=== PATIENT | male | born 1970 | race Caucasian/White ===

== ENCOUNTER 2023-04-10 15:47 | Emergency (ER) | payer OTHER, SELFPAY ==
[2023-04-10 15:54] VITALS: BP 121/80
[2023-04-10 16:13] LABS: % Basophils 0.3 % (0-2); % Eosinophils 1.3 % (0-6); % Immature Granulocytes 0.7 % (0-0.5); % Lymphocytes 16.6 % (20.5-51.1); % Monocytes 10.2 % (1.7-9.3); % Neutrophils 70.9 % (42.2-75.2); Absolute Eosinophils 0.2 10^3/uL (0-0.7); Absolute Immature Granulocytes 0.1 10^3/uL (0-0.05); Absolute Lymphocytes 2.2 10^3/uL (1.2-3.4); Absolute Monocytes 1.4 10^3/uL (0.1-0.6); Absolute Neutrophils 9.5 10^3/uL (1.4-6.5); Hematocrit 39.3 % (39.0-52.0); Hemoglobin 13.8 g/dL (13.0-18.0); Mean Corp Hgb Conc. 35.1 g/dL (33.0-37.0); Mean Corpuscular Hgb 31.1 pg (27.0-31.0); Mean Corpuscular Volume 88.5 fL (80.0-94.0); Mean Platelet Volume 10.1 fL (7.4-10.4); Nucleated Red Blood Cells % 0 % (-); Platelet Count 334 10^3/uL (130-400); Red Blood Cell Count 4.44 10^6/uL (4.70-6.10); Red Cell Dist. Width 12.6 % (11.5-14.5); White Blood Cell Count 13.4 10^3/uL (4.8-10.8)
[2023-04-10 16:22] LABS: Lactic Acid 1.1 mmol/L (0.7-2.0)
[2023-04-10 16:23] LABS: ALT (SGPT) 26 U/L (0-50); AST (SGOT) 22 U/L (17-59); Albumin 4.2 g/dl (3.5-5.0); Alkaline Phosphatase 76 U/L (38-126); Blood Urea Nitrogen 8 mg/dl (9-20); Calcium 9.3 mg/dl (8.4-10.2); Carbon Dioxide 21 mmol/L (22-30); Chloride 104 mmol/L (98-107); Glucose 97 mg/dl (70-99); Potassium 4.2 mmol/L (3.5-5.1); Sodium 133 mmol/L (135-145); Total Bilirubin 0.8 mg/dl (0.2-1.3); eGFR > 60.00
--- NOTE | 2023-04-10 17:48 | ED.GENMED ---
History of Present Illness
General
Chief Complaint: Pneumonia Symptoms
Time Seen by Provider: 04/10/23 16:49
Travel History
Have you had any contact with someone who has COVID-19?: No
Do you have any symptoms of coronavirus? Fever > 100 degrees, chills, cough, shortness of breath, sore throat, loss of taste or smell, muscle aches, or headache?: Yes
Symptoms:: cough
History of Present Illness
History of Present Illness:
53-year-old male with history of GERD presents to the emergency department for evaluation of persistent cough and chest congestion. He states he had influenza in January and has continually had worsening symptoms. He saw his neck band maker as an
outpatient in the middle of March and was prescribed azithromycin, completed this without any change to symptoms. Continue to have coughing and shortness of breath and went to urgent care today, outpatient chest x-ray reportedly suggesting
multifocal pneumonia. I was able to review report however not the dedicated images from the urgent care. The patient was then sent to the emergency department for treatment.
Past History
Past History
ED Past Medical History: GERD
ED Past Surgical History: Orthopedic
Social History
Tobacco: Non-smoker
Alcohol: Occasional
Drug: None
Personal:
Living: with family
Review of Systems
Review of Systems
Allergies reviewed?: Yes
All Other Systems: ROS reviewed and negative except as documented in HPI and ROS
Phy Exam
Physical Exam
Physical Exam:
GEN: Well appearing, NAD, WDWN
HEENT: Oral mucosa moist, no scleral icterus
Cardiac: Mild tachycardia, regular
Lung: No respiratory distress, no tachypnea, interstitial crackles best heard at the right middle and lower lobes
MSK: No gross deformity or injuries
Skin: Good color, no pallor or jaundice, no rashes
Neuro: AO x3, moves all extremities freely
Psych: Calm, cooperative
Course
Orders/Labs/Results
Orders:
Orders
04/10/23 15:58
Electrocardiogram (*1) Urgent
Reason for Study: Other
Other Reason for Exam: coughing
EKG- Treatment ONCE
04/10/23 16:02
Complete Blood Count/With Diff Urgent
Comprehensive Metabolic Panel Urgent
Lactic Acid Urgent
Blood Culture Urgent
MAURILIO Source: Blood/Venous
Specimen Description:
04/10/23 16:59
0.9% Sodium Chloride 1000 ml [Nss] 1,000 ml IV BOLUS
CefTRIAXone [Rocephin] 1,000 mg IV NOW STA
Doxycycline [Vibramycin] 100 mg PO NOW STA
04/10/23 17:47
Blood Culture Urgent
MAURILIO Source: Blood/Venous
Specimen Description:
Abnormal Lab Results
04/10/23
16:02
WBC 13.4 H 10^3/uL
(4.8-10.8)
RBC 4.44 L 10^6/uL
(4.70-6.10)
MCH 31.1 H pg
(27.0-31.0)
Abs Immat Gran (auto) 0.1 H 10^3/uL
(0-0.05)
Absolute Neuts (auto) 9.5 H 10^3/uL
(1.4-6.5)
Absolute Monos (auto) 1.4 H 10^3/uL
(0.1-0.6)
Immature Gran % 0.7 H %
(0-0.5)
Lymphocytes % 16.6 L %
(20.5-51.1)
Monocytes % 10.2 H %
(1.7-9.3)
Sodium 133 L mmol/L
(135-145)
Carbon Dioxide 21 L mmol/L
(22-30)
BUN 8 L mg/dl
(9-20)
04/10/23 16:02
04/10/23 16:02
Vital Signs
Initial and Last Documented VS:
Initial Vital Signs
Temp Pulse Resp BP Pulse Ox
98.8 F 118 18 121/80 96
04/10/23 15:54 04/10/23 15:54 04/10/23 15:54 04/10/23 15:54 04/10/23 15:54
Last Documented Vital Signs
Temp Pulse Resp BP Pulse Ox
98.8 F 118 18 121/80 96
04/10/23 15:54 04/10/23 15:54 04/10/23 15:54 04/10/23 15:54 04/10/23 15:54
MDM/Problems Addressed
MDM/Problems Addressed:
Patient is clinically well with minimal leukocytosis and no hypoxia. His clinical exam is congruent with the outpatient chest x-ray findings. I see no indication for admission at this juncture. Will cover the patient with dual coverage
antibiotics particular given his recent influenza suggesting a potential postobstructive pneumonia as well as recent course of azithromycin. Will treat with cefdinir as well as doxycycline both for a 1 week course, initial antibiotic started in the
emergency department
*Critical Care Note
Total Time (30-74mins, 75-104mins- exclusive of procedures): Not Applicable
ED Attending Note
-
Portions of this chart may have been created with voice recognition software.� Occasional wrong word or��sound alike� substitutions may have occurred due to the inherent limitations of voice recognition software.
Discharge Plan
Departure
Patient Disposition: Home (Routine Discharge)
Date of Disposition: 04/10/23
Time of Disposition: 17:57
Patient with high blood pressure during this ER visit?: No
Discharge Problem:
Multifocal pneumonia
Instructions: Pneumonia, Adult (DC)
Prescriptions:
New
cefpodoxime 200 mg tablet
200 mg PO Q12H 6 Days Qty: 12 0RF
doxycycline hyclate 100 mg capsule
100 mg PO BID Qty: 13 0RF
No Action
oseltamivir [Tamiflu] 75 mg capsule
75 mg PO BID 5 Days Qty: 10 0RF
albuterol sulfate 90 mcg/actuation HFA aerosol inhaler
2 puff inhalation QID PRN (Reason: shortness of breath or wheezing) Qty: 6.7 0RF
Activity Restrictions/Additional Instructions:
See your primary care doctor or neck band maker in 7-10 days for follow up
If your symptoms worsen, you develop difficulty breathing, or chest pain, return to the ER immediately
Do not take the doxycycline at the same time as any metal supplements (calcium, iron, etc) or foods with high metal content (red meat, dairy, etc).
Interventions
Interventions:
*ED COVID-19 Vaccine History Last Done: 04/10/23 15:54
[2023-04-10] MEDS: NSS 1000 IV (17:54)
[2023-04-10] MEDS: VIBRAMYCIN 100 MG PO (17:55)
[2023-04-10] MEDS: ROCEPHIN 1000 MG IV (17:55)
[2023-04-10 18:00] VITALS: BP 132/74
== END 2023-04-10 19:22 | disposition home or self-care (01) ==
LOC: EMR 15:47
PROVIDERS: Emergency Medicine; EMERGENCY PHYSICIAN Emergency Medicine; FAMILY PHYSICIAN Internal Medicine
DX: J18.9 Pneumonia, unspecified organism (principal)
CPT/HCPCS: 99284; 96374; 96361; 80053; 83605; 85025; 87040; 93005

== ENCOUNTER 2023-04-15 13:16 | Inpatient (IN) | payer OTHER, SELFPAY ==
[2023-04-15] VITALS (10 sets, daily range): BP systolic 97–115; BP diastolic 68–85; BMI 33.9; BMI 32.3
[2023-04-15 10:20] LABS: % Basophils 0.3 % (0-2); % Eosinophils 1.4 % (0-6); % Immature Granulocytes 0.4 % (0-0.5); % Lymphocytes 14.1 % (20.5-51.1); % Monocytes 11.3 % (1.7-9.3); % Neutrophils 72.5 % (42.2-75.2); Absolute Eosinophils 0.2 10^3/uL (0-0.7); Absolute Immature Granulocytes 0.1 10^3/uL (0-0.05); Absolute Lymphocytes 1.7 10^3/uL (1.2-3.4); Absolute Monocytes 1.3 10^3/uL (0.1-0.6); Absolute Neutrophils 8.5 10^3/uL (1.4-6.5); Hematocrit 38.6 % (39.0-52.0); Hemoglobin 13.1 g/dL (13.0-18.0); Mean Corp Hgb Conc. 33.9 g/dL (33.0-37.0); Mean Corpuscular Hgb 30.5 pg (27.0-31.0); Mean Corpuscular Volume 89.8 fL (80.0-94.0); Nucleated Red Blood Cells % 0 % (-); Platelet Count 335 10^3/uL (130-400); Red Cell Dist. Width 12.7 % (11.5-14.5); White Blood Cell Count 11.8 10^3/uL (4.8-10.8)
--- NOTE | 2023-04-15 10:22 | ED.GENMED ---
History of Present Illness
General
Chief Complaint: Chest Pain
Source: patient and spouse
Exam Limitations: none
Time Seen by Provider: 04/15/23 10:02
Travel History
Have you had any contact with someone who has COVID-19?: No
Do you have any symptoms of coronavirus? Fever > 100 degrees, chills, cough, shortness of breath, sore throat, loss of taste or smell, muscle aches, or headache?: No
History of Present Illness
History of Present Illness:
Patient currently being treated for multifocal pneumonia. Seen here 4 days ago for same. Currently on antibiotics. X-ray was done at urgent care and read there. However primary care was concerned about his EKG. He did have some chest tightness
this morning. Shortness of breath has been stable.
Past History
Past History
ED Past Medical History: GERD
ED Past Surgical History: Orthopedic
Social History
Tobacco: Non-smoker
Alcohol: Occasional
Drug: None
Personal:
Living: with family
Review of Systems
Review of Systems
All Other Systems: Not applicable
Constitutional: Denies fever
Respiratory: Reports cough
ABD/GI: Reports no symptoms
Phy Exam
Physical Exam
Physical Exam:
GENERAL: Alert and oriented in no apparent distress
EYE: Orbits normal.
NECK: Supple
CARDIAC: Tachycardic and regular no murmur
LUNGS: Mild tachypnea at rest. Pulse ox upon getting into bed was about 90%. When resting will go up to 92 to 94%. Bilateral rales. No wheezing or rhonchi
ABDOMEN: Soft, without focal tenderness or distention
NEUROLOGICAL: Alert and oriented , grossly non-focal
SKIN: Warm and dry, no rash or lesion, no discoloration, skin intact.
MUSCULOSKELETAL: No edema,no deformity.Good color
PSYCH: Normal and appropriate interaction.
Scores
Heart Score for Chest Pain Patients
STEMI patient?: No
History: Slightly or Non-Suspicious
ECG: Nonspecific Repolarization
Age: >45 - <65 years
Risk Factors: 1 or 2 Risk Factors
Troponin: </= Normal Limit
Heart Score for Chest Pain Patients: 3
Heart Score Risk: 2.5% MACE over next 6 weeks
Course
Orders/Labs/Results
Orders:
Orders
04/15/23 09:55
Electrocardiogram (*1) Urgent
Reason for Study: Chest Pain
EKG- Treatment ONCE
04/15/23 10:09
Complete Blood Count/With Diff Urgent
Comprehensive Metabolic Panel Urgent
NT-proBNP Urgent
Comment: ADD N
Prothrombin Time Urgent
Troponin I Urgent
04/15/23 10:13
Add On- LAB Urgent
Tests Added?: probnp
CXR Port [CR Chest Portable - 1 View] Urgent
Comment:
Reason For Exam: sob
Reason Study Needs to be Portable: Unable to Transport
04/15/23 10:14
Cardiac Monitoring- Treatment ONCE
IV Insert/Care/Rem.- Treatment PRN
O2 Therapy [RESP] Stat
Titrate/Wean O2 to maintain O2 sat greater than (%): 94
04/15/23 10:56
Furosemide [Lasix] 40 mg IV NOW STA
04/15/23 12:06
Echo 2D MMode Color/Doppler [Echo 2D MMode Color/Doppler] Routine
Reason for Study: SOB
04/15/23 12:57
Admit/Transfer Patient As Directed
Co-Sign Provider:
Level of Care: Inpatient admission
Assign to:: Telemetry
Physician / Group: Main
Diagnosis: Hypoxia, Acute Heart Failure
Reason for Telemetry: Acute Heart Failure
Date to Stop Telemetry: 04/18/23
Time to Stop Telemetry: 11:00
Reason for Hospitalization: Cardiology consult; IV diuretics
Expected length of stay greater than two midnights?: Yes
ELOS- Estimated Length of Stay in days: 3
I certify the patient meets the requirements for IP care: Yes
04/15/23 12:59
Code Status As Directed
Resuscitation Status: Full Code
04/15/23 13:01
COVID-19 Antigen Urgent
Source: Nasal Swab
04/15/23 13:15
CARDIOLOGY CONSULT Routine
Consulting Provider: Roman Menjivar
Was physician already notified: Yes
04/15/23 13:16
Procalcitonin Urgent
PCT Algorithmm Indication: Respiratory
04/15/23 14:49
HF DIETARY CONSULT Routine
HF EDUCATOR CONSULT Routine
Comment:
Activity As Directed
Activity Level: Out of Bed-Early Mobility
Intake/ Output As Directed
Frequency: Per unit guidelines
Patient Education As Directed
Type: CHF folder
Comment: give on admission. Document in Interdisciplinary Education record
Sleep Apnea Assessment by RN As Directed
Comment:
Physician Instructions:
Vital Signs As Directed
Frequency: Other
Additional Instructions:: Q12 or per unit guidelines if more frequent.
Weight As Directed
Frequency: Daily
Type of Scale: Standing Scale
Comment: Daily morning weight. If unable to stand, use balanced bed scale.
Weight As Directed
Frequency: Once
Type of Scale: Standing Scale
Comment: Upon Admission. If unable to stand, use balanced bed scale.
O2 Therapy [RESP] Routine
Titrate/Wean O2 to maintain O2 sat greater than (%): 90
Pulse Ox/cont/shift [RESP] Routine
Quantity: 1
Special Instructions: Daily pulse oximetry at rest. If greater than 92% at rest also obtain pulse oximetry
while ambulating as tolerated.
DX Deep Vein Thrombosis Video Routine
04/15/23 Dinner
Cholesterol Lowering
At Your Request: Full Participation
Cholesterol Lowering: Sodium, 2 Gram
04/15/23 16:00
Troponin I Q6H
Furosemide [Lasix] 40 mg IV BID AT 0800,1600
04/15/23 18:00
Enoxaparin Sodium [Lovenox] 40 mg SC QPM
04/15/23 22:00
Troponin I Q6H
04/16/23 06:00
Basic Metabolic Panel IN AM
Cardiovascular Evaluation IN AM
Complete Blood Count/No Diff IN AM
Hgba1c [Glycohemoglobin (HgbA1c)] IN AM
Magnesium IN AM
TSH Reflex To Free T4 IN AM
04/17/23 06:00
Basic Metabolic Panel IN AM
04/18/23 06:00
Basic Metabolic Panel IN AM
04/18/23 11:00
DC Protocol for Telemetry ONCE
Abnormal Lab Results
04/15/23
10:09
WBC 11.8 H 10^3/uL
(4.8-10.8)
RBC 4.30 L 10^6/uL
(4.70-6.10)
Hct 38.6 L %
(39.0-52.0)
Abs Immat Gran (auto) 0.1 H 10^3/uL
(0-0.05)
Absolute Neuts (auto) 8.5 H 10^3/uL
(1.4-6.5)
Absolute Monos (auto) 1.3 H 10^3/uL
(0.1-0.6)
Lymphocytes % 14.1 L %
(20.5-51.1)
Monocytes % 11.3 H %
(1.7-9.3)
PT 15.0 H Sec
(11.4-14.6)
Sodium 133 L mmol/L
(135-145)
Glucose 118 H mg/dl
(70-99)
Troponin I 0.074 H* ng/ml
04/15/23 10:09
04/15/23 10:09
Vital Signs
Initial and Last Documented VS:
Initial Vital Signs
Temp Pulse Resp BP Pulse Ox
98.7 F 53 18 110/78 95
04/15/23 09:53 04/15/23 09:53 04/15/23 09:53 04/15/23 09:53 04/15/23 09:53
Last Documented Vital Signs
Temp Pulse Resp BP Pulse Ox
98.7 F 96 20 103/79 98
04/15/23 09:53 04/15/23 13:15 04/15/23 12:30 04/15/23 13:01 04/15/23 13:15
MDM/Problems Addressed
Differential Diagnosis Includes:
I am suspicious of possible CHF. This could be a multifocal pneumonia. Workup in progress. Warrants admission.
*Critical Care Note
Total Time (30-74mins, 75-104mins- exclusive of procedures): 45
Data Reviewed
Review of Other/Old Records Reveals: Labs and Records
Update Note
Update Note:
1105... I am much more suspicious of CHF versus a pulmonary etiology. X-ray is suspicious. Discussed with cardiology. Discussed with hospitalist. Cardiology will see shortly. Still administer Lasix.
ED Attending Note
-
Portions of this chart may have been created with voice recognition software.� Occasional wrong word or��sound alike� substitutions may have occurred due to the inherent limitations of voice recognition software.
Discharge Plan
Departure
Patient Disposition: Admit
Date of Disposition: 04/15/23
Time of Disposition: 11:15
Presentation/result/management discussed w/ accepting MD/DO: Cardiology
Discharge Problem:
Heart failure
Interventions
Interventions:
*Risk Screen - Suicide Last Done: 04/15/23 09:53
*General Assessment Last Done: 04/15/23 09:53
*Neglect/Abuse Screening Last Done: 04/15/23 09:53
*ED COVID-19 Vaccine History Last Done: 04/15/23 10:03
*Nursing Disposition Last Done: 04/15/23 13:59
ED- Cardiac Assessment Last Done: 04/15/23 10:04
Discharge Date and Time
Discharge Date/Time: 04/15/23 13:59
[2023-04-15 10:30] LABS: INR 1.17
[2023-04-15 10:36] LABS: ALT (SGPT) 28 U/L (0-50); AST (SGOT) 27 U/L (17-59); Albumin 3.9 g/dl (3.5-5.0); Alkaline Phosphatase 67 U/L (38-126); Blood Urea Nitrogen 9 mg/dl (9-20); Calcium 9.3 mg/dl (8.4-10.2); Carbon Dioxide 25 mmol/L (22-30); Chloride 101 mmol/L (98-107); Estimated Creatinine Clearance 105 ml/min; Glucose 118 mg/dl (70-99); Potassium 4.2 mmol/L (3.5-5.1); Sodium 133 mmol/L (135-145); Total Bilirubin 0.6 mg/dl (0.2-1.3); Total Protein 6.9 g/dl (6.3-8.2); eGFR > 60.00
[2023-04-15 10:49] LABS: Troponin I 0.074 ng/ml
[2023-04-15] MEDS: LASIX 40 MG IV ×2 (11:18→16:29)
[2023-04-15 11:21] LABS: NT-proBNP 1960 pg/ml
--- NOTE | 2023-04-15 11:21 | CON.CAR ---
Addendum entered and electronically signed by Roman Menjivar MD 04/15/23 13:40:
I saw and examined the patient.
The STERILE TECH's note was reviewed and I agree with the note.
Comment: Consultation
Consultation Request
Date/Time Consultation Requested:�04/15/23 1113
Date/Time Consultation Performed:�04/15/23 1140
Requesting Provider:�Dr. Doe
Performing Provider:�Jennifer CAMILO for Dr. Menjivar
Reason for Consultation:�chest discomfort, shortness of breath
Medical History
-
Chief Complaint:�SOB, chest discomfort
History of Present Illness:
53 y/o male with hypertension, obesity on Ozempic, DM (not currently on medicines), suspected FAMILIA (not yet treated), hx dyslipidemia (normal on most recent OP labs), former smoker who is here for evaluation of SOB and chest discomfort when taking
deep breaths and coughing. He endorses symptoms that began in January but continued despite treatment of influenza. He has had recurrent ED visits. He is clearly describing episodes of orthopnea and PND. He has been losing weight with Ozempic.
He did see a skein winder as an outpatient but no testing was done as they were waiting for him to recover from the flu. On physical exam he has a pickwickian it, JVP is elevated at the level of the mandible. He has a regular rate and rhythm.
Lungs are clear to auscultation bilaterally with frequent coughing. Extremities are warm and well-perfused. No edema. Chest x-ray shows pulmonary edema with small areas of focal consolidation in the bases. Cardiomegaly is seen. EKG shows sinus
rhythm with a tachycardic rate and PVCs. Poor R wave progression is noted. Left axis deviation is also noted. This is under change outside of rate from the prior recently. However in 2018 R wave progression was not normal. Labs are significant
for an elevated proBNP. Troponin is elevated in the setting of acute CHF. Echocardiogram will be done immediately. I will give an additional dose of Lasix this evening. Further cardiac evaluation pending echo result, I did discuss with him and
his that cardiac catheterization may be indicated during this hospitalization. However his chest pain is that of a pleuritic nature. Will follow.
Original Note:
Consultation
Consultation Request
Date/Time Consultation Requested: 04/15/23 1113
Date/Time Consultation Performed: 04/15/23 1140
Requesting Provider: Dr. Doe
Performing Provider: Jennifer CAMILO for Dr. Menjivar
Reason for Consultation: chest discomfort, shortness of breath
Medical History
-
Chief Complaint: SOB, chest discomfort
History of Present Illness:
53 y/o male with hypertension, obesity on Ozempic, DM (not currently on medicines), suspected FAMILIA (not yet treated), hx dyslipidemia (normal on most recent OP labs), former smoker who is here for evaluation of SOB and chest discomfort. Briefly, he
had the flu back in January and has been SOB on and off ever since. He also has a cough with green sputum and chills. He is on ABX for PNA. Today, he went to his PCP in follow-up and reported some chest burning that started around 7 AM. It was
across his chest and into his left side. He was sent to the ER for further evaluation. It is better now. It is worse with palpation, cough, and inspiration. Laying makes his SOB worse. He did have an episode of PND recently. He denies any weight
gain or LE edema. Actually, he has recently lost about 20 lbs over the past 2 months after starting Ozempic. He is in no distress at the time of my assessment. He was just given a dose of IV lasix for suspected HF. He recently saw Dr. Reddy
(skein winder) as a new patient for SOB, but was not able to get the recommended testing done yet due to cough, per patient .
Past Medical History
Past Medical History: HTN, Hypercholesterolemia and NIDDM
Social History
Tobacco: Former Smoker
Personal:
Living: With Family
Family History
Family History: Other (mom with heart disease- details unclear)
Allergies / Home Medications
Allergy/AdvReac Type Severity Reaction Status Date / Time
loperamide [From Imodium A-D] Allergy Swelling Verified 04/15/23 09:52
seasonal allergies Allergy nasal Uncoded 04/10/23 15:57
symptoms
Medication Instructions Recorded Confirmed Type
albuterol sulfate 90 mcg/actuation 2 puff inhalation R QIDPRN PRN 04/15/23 04/15/23 History
aerosol inhaler shortness of breath or wheezing
cefpodoxime 200 mg tablet 200 mg PO Q12H Infection 04/15/23 04/15/23 History
dextromethorphan polistirex 30 5 ml PO QIDPRN PRN COUGH 04/15/23 04/15/23 History
mg/5 mL oral susp ext.release 12hr
(Delsym 12 hour)
doxycycline hyclate 100 mg capsule 100 mg PO BID Infection 04/15/23 04/15/23 History
ipratropium 0.5 mg-albuterol 3 mg 3 ml inhalation R Q4HPRN PRN SOB 04/15/23 04/15/23 History
(2.5 mg base)/3 mL nebulization
soln
grvnjqnlckejp-XE-uipnirkpminrx-guaif 15 ml PO BIDPRN PRN COUGH AND MILD 04/15/23 04/15/23 History
5 mg-10 mg-325 mg-200mg/15 mL liq PAIN
(Tylenol Cold and Flu Severe)
semaglutide 0.25 mg or 0.5 mg (2 0.25 mg SC MO 04/15/23 04/15/23 History
mg/3 mL) subcutaneous pen injector
(Ozempic)
Review of Systems
-
History Source: Patient
All other systems: Negative unless noted
Respiratory: Cough and Trouble Breathing
Cardiac: Chest Pain
Physical Exam
Vital Signs
Temp Pulse Resp BP Pulse Ox
98.7 F 104 24 97/63 93
04/15/23 09:53 04/15/23 11:18 04/15/23 10:15 04/15/23 11:18 04/15/23 10:15
Lab Results
04/15/23 10:09
04/15/23 10:09
Troponin I 0.074 ng/ml H* 04/15/23 10:09
Egi-R-Zxtvbdwctyt Pept 1960 pg/ml 04/15/23 10:09
Physical Exam
General: Well Developed, Well Nourished and No Apparent Distress
HEENT: Normocephalic and Anicteric
Respiratory: Crackles (b/l bases) and Other (on O2 by NC)
Cardiac: Regular Rhythm (SR/ST)
Breast: Deferred by me
GI: Soft and Normal Bowel Sounds
Musculoskeletal: No Edema
Skin: Warm and Dry
Neuro: AO x 3
Psych: Calm
Impression / Plan
-
SOB:
-possibly multifactorial with PNA (leukocytosis, productive cough, chills), as well as acute HF (see below)
-PNA management per primary team, CHF as below
-o2 91%, now on O2
Chest discomfort:
-improved, worse with cough, palpation, and inspiration
-check echo
Acute HF (type unknown), new diagnosis:
-BNP 1919
-check echo today
-continue IV lasix, which requires intensive monitoring- monitor response
Abnormal troponin:
-etiology unclear, but was mildly hypoxic on arrival
-trend trop to peak
-check echo
HTN:
-on olmesartan as OP
-BP on low end here- follow
DM2:
-not on medical therapy
Obesity:
-improving with Ozempic
Suspected sleep apnea:
-per primary
Data Reviewed
-
EKG: Tracing Personally Visualized and interpreted (ST with PVC's)
Radiology: Report Reviewed by me (CXR: Mild cardiomegaly. Suggestion of mild pulmonary vascular congestion. Patchy opacities at each lung base, which may be related to pneumonia, subsegmental atelectasis, or alveolar pulmonary edema.)
Medical Tests (Nuc Med, Echo etc): Other (ordered)
Labs: Labs Reviewed by me
--- NOTE | 2023-04-15 13:08 | HPS.HSE ---
Addendum entered and electronically signed by Papito Quach MD 04/15/23 14:14:
I saw and examined the patient.
The RUBBER GOODS ASSEMBLER or PA's note was reviewed and I agree with the note.
Comment: 53-year-old male came to the hospital with ongoing cough and shortness of breath. Elevated proBNP in the ED. Concern for CHF. Patient has been having the symptoms since October where he had dyspnea on exertion. Later on he developed
flu in January. Currently he has been treated for pneumonia. Will continue antibiotics for another 2 days. Check procalcitonin. Check echo. Continue with IV Lasix. Depends on echocardiogram may need cardiac catheterization. Cardiology
consulted. wean o2 as tolerated; currently on 4 L
General:�Comfortable and Conversant
HEENT:�Anicteric, Moist mucous membranes and Oxygen (Nasal Cannula)
Respiratory:�Rales (Bilaterally from bases to about 2[address] up lung adams)
Cardiac:�S1/S2 and Regular Rhythm; No Murmur
GI:�Soft, Non Tender and Non Distended
Musculoskeletal:�No Clubbing, No Cyanosis and No Edema
Skin:�Warm and Dry
Neuro:�Awake, Alert, Oriented and Nonfocal/grossly intact
I spent a total of 78 minutes with the patient or on the floor. More than 50% of this time involved counseling and coordination of care.
Original Note:
Family Physician
-
Family Physician: Nicolás Garcia
Chief Complaint
-
Cough and Shortness of Breath
History of Present Illness
Patient is a 53 y/o male past medical history of hypertension who presents with increased cough and shortness of breath. Patient reports he had Influenza over [place], and was treated with Tamiflu and a Z-Blair. He reports persistent cough despite
treatment. He was seen at Urgent Care four days ago at which time he was started on cefpodoxime and doxycycline for pneumonia. He was seen by PCP in follow-up today and referred to ED for persistent shortness of breath and ECG changes. Patient
denies any prior history of coronary artery disease or heart failure.
Medical History
Past Medical History
Past Medical History: Reports Other
Additional Past Medical History:
Essential Hypertension
GERD
Past Surgical History: Reports Other
Additional Past Surgical History:
Right Knee
Right Wrist
Social History
Tobacco: Former Smoker (Quit about 7 years ago)
Alcohol: Occasional
Personal:
Family History
Family History: Not pertinent
Allergies / Home Medications
Allergies reflects when Allergies were last updated in [facility].
Home Medications with original date entered in [facility]
Allergy/Medication List:
Allergies
Allergy/AdvReac Type Severity Reaction Status Date / Time
loperamide [From Imodium A-D] Allergy Swelling Verified 04/15/23 09:52
seasonal allergies Allergy nasal Uncoded 04/10/23 15:57
symptoms
Home Medications
albuterol sulfate 90 mcg/actuation aerosol inhaler 2 puff inhalation R QIDPRN PRN shortness of breath or wheezing 04/15/23
cefpodoxime 200 mg tablet 200 mg PO Q12H Infection 04/15/23
dextromethorphan polistirex 30 mg/5 mL oral susp ext.release 12hr (Delsym 12 hour) 5 ml PO QIDPRN PRN COUGH 04/15/23
doxycycline hyclate 100 mg capsule 100 mg PO BID Infection 04/15/23
ipratropium 0.5 mg-albuterol 3 mg (2.5 mg base)/3 mL nebulization soln 3 ml inhalation R Q4HPRN PRN SOB 04/15/23
javnkolxfgzce-PY-seqfzpryouxvw-guaif 5 mg-10 mg-325 mg-200mg/15 mL liq (Tylenol Cold and Flu Severe) 15 ml PO BIDPRN PRN COUGH AND MILD PAIN 04/15/23
semaglutide 0.25 mg or 0.5 mg (2 mg/3 mL) subcutaneous pen injector (Ozempic) 0.25 mg SC MO Diabetes 04/15/23
Review of Systems
-
A 12 point ROS was completed and negative except as noted: Yes
Constitutional: Denies Fever or Chills
Respiratory: Reports Cough and Trouble Breathing
Cardiac: Reports Other (Chest soreness); Denies Palpitations
Physical Exam
Vital Signs
Vital Signs
Temp Pulse Resp BP Pulse Ox
98.7 F 101 20 103/79 95
04/15/23 09:53 04/15/23 13:01 04/15/23 12:30 04/15/23 13:01 04/15/23 13:00
Physical Exam
General: Comfortable and Conversant
HEENT: Anicteric, Moist mucous membranes and Oxygen (Nasal Cannula)
Respiratory: Rales (Bilaterally from bases to about 2/[address] up lung adams)
Cardiac: S1/S2 and Regular Rhythm; No Murmur
GI: Soft, Non Tender and Non Distended
Musculoskeletal: No Clubbing, No Cyanosis and No Edema
Skin: Warm and Dry
Neuro: Awake, Alert, Oriented and Nonfocal/grossly intact
Laboratory Results
-
04/15/23 10:09
04/15/23 10:09
Laboratory Results
PT 15.0 Sec (11.4-14.6) H 04/15/23 10:09
INR 1.17 04/15/23 10:09
Total Bilirubin 0.6 mg/dl (0.2-1.3) 04/15/23 10:09
AST 27 U/L (17-59) 04/15/23 10:09
ALT 28 U/L (0-50) 04/15/23 10:09
Alkaline Phosphatase 67 U/L (38-126) 04/15/23 10:09
Troponin I 0.074 ng/ml H* 04/15/23 10:09
Data Reviewed
-
Diagnostic Radiology: Report Reviewed by me
Lab Data: Labs Reviewed by me
Old Records: Reviewed
Impression/Plan
-
Acute Heart Failure, unknown type
-Consult Cardiology
-Check Echo
-Continue Lasix 40mg IV BID
-Monitor Is&OS and Daily Weights
Recent Pneumonia
-Check procalcitonin - Depending on result will determine need for continue antibiotics
DVT proph: Lovenox
Code Status: Full Code
[2023-04-15 13:23] LABS: COVID-19 Antigen Negative (Negative)
--- NOTE | 2023-04-15 14:29 | CARDSERVLU ---
Echocardiogram with Lumason completed after protocol screening completed. Allergies verified.
Patent IV site: _Rt AC __
IV site flushed with 0.9% NaCl pre and post administration.
Diluted bolus method utilized to enhance visualization of ventricular baird.
Total volume given: _3.0___ mL
Patient tolerated all procedures well without complications.
--- NOTE | 2023-04-15 16:00 | PTCARENOTE ---
Received pt from ED s/p ECHO. Pt walked into room w/ standby assist. Slight SOB, 93% on 2LNC. LS w/ fine crackles irma bases. VSS. Full assessment as documented..
--- NOTE | 2023-04-15 16:16 | W.PN.UPDATE ---
Update Note
Progress Note Update
TTE done showing:
�Left ventricle is moderately dilated. Severely reduced left ventricular
�systolic function. LVEF is estimated at 25%.
�Global hypokinesis.
�Moderate mitral regurgitation.
�Mild/moderate aortic regurgitation.
�Mildly dilated aortic root: SOV 4.0 cm.
�
�No prior study available for comparison.
Will need cath, however not certain he will be able to lie flat tomorrow. Will keep npo and eval in am.
[2023-04-15 16:25] LABS: Procalcitonin < 0.05 ng/ml (0.0-0.25)
[2023-04-15] MEDS: ASPIRIN 325 MG PO (16:29)
[2023-04-15] MEDS: VIBRAMYCIN 100 MG PO (17:45)
[2023-04-15] MEDS: LOVENOX 40 MG SC (17:45)
[2023-04-15] MEDS: ROBITUSSIN PO (17:49)
[2023-04-15] MEDS: ROBITUSSIN 200 MG PO ×2 (17:49→21:56)
[2023-04-16] VITALS (12 sets, daily range): BP systolic 91–129; BP diastolic 70–95; BMI 32.1
[2023-04-16] MEDS: LASIX 40 MG IV (07:49)
[2023-04-16] MEDS: LOW STRENGTH ASPIRIN 81 MG PO (07:50)
[2023-04-16] MEDS: VIBRAMYCIN 100 MG PO ×2 (07:50→20:09)
[2023-04-16] MEDS: ROBITUSSIN 200 MG PO ×3 (07:50→22:34)
--- NOTE | 2023-04-16 08:12 | W.PN.CD ---
Today's Communication / Plan
-
-Echocardiogram yesterday revealed a dilated left ventricle with an EF of 25% with global hypokinesis and moderate MR.
-Patient will undergo right and left heart cardiac catheterization today for definitive coronary assessment; keep NPO.
-Will start GDMT with Toprol-XL 25 mg daily; PVCs noted on telemetry, but no VT.
-Will not start ACEi/ARB/ARNi for now due to blood pressure limitations; try to add after catheterization.
-Will start an SGLT2 inhibitor (Jardiance).
-Continue Lasix 40 mg IV BID.
-Troponin has now peaked at 2 and is trending down.
-Will not start heparin at this time as the patient received Lovenox last evening.
-Continue aspirin 81 mg daily.
-Will start high-dose atorvastatin(80 mg daily) now.
Impression / Plan
-
53 y/o male with hypertension, obesity on Ozempic, DM (not currently on medicines), suspected FAMILIA (not yet treated), hx dyslipidemia (normal on most recent OP labs), former smoker who is here for evaluation of SOB and chest discomfort when taking
deep breaths and coughing.� He endorses symptoms that began in January but continued despite treatment of influenza.� He has had recurrent ED visits.� He is clearly describing episodes of orthopnea and PND.� He has been losing weight with Ozempic.�
He did see a chemical pathologist as an outpatient but no testing was done as they were waiting for him to recover from the flu. Patient is currently being treated with antibiotics for suspected pneumonia. Echocardiogram yesterday revealed a dilated left
ventricle with an EF of 25% with global hypokinesis and moderate MR.
Acute HFrEF (EF 25%) with dilated left ventricle and moderate MR (likely functional MR):
-BNP 0.
-Patient will undergo right and left heart cardiac catheterization today for definitive coronary assessment; keep NPO.
-Will start GDMT with Toprol-XL 25 mg daily; PVCs noted on telemetry, but no VT.
-Will not start ACEi/ARB/ARNi for now due to blood pressure limitations; try to add after catheterization.
-Will start an SGLT2 inhibitor (Jardiance).
-Continue Lasix 40 mg IV BID.
Elevated troponin:
-Possibly secondary to NSTEMI vs type II DE vs nonischemic myocardial injury in the setting of CHF and infection.
-Patient to undergo cardiac catheterization today as above.
-Troponin has now peaked at 2 and is trending down.
-Will not start heparin at this time as the patient received Lovenox last evening.
-Continue aspirin 81 mg daily.
-Will start high-dose atorvastatin(80 mg daily) now.
-Lipid panel pending.
PNA:
-PNA management per primary team; on antibiotics.
HTN:
-on olmesartan as OP
-Will continue to monitor with medication adjustments above.
DM2:
-not on medical therapy; was on Ozempic for weight loss.
-Hemoglobin A1c pending.
Obesity:
-improving with Ozempic
Suspected sleep apnea:
-Management as per primary team.
Physical Exam
Vital Signs/Labs
Vital Signs
Temp Pulse Resp BP Pulse Ox
98.5 F 96 18 109/70 93
04/16/23 07:48 04/16/23 07:49 04/16/23 07:48 04/16/23 07:49 04/16/23 07:48
04/15/23 04/16/23 04/17/23
06:59 06:59 06:59
Actual Weight 101.605 kg
PT 15.0 Sec (11.4-14.6) H 04/15/23 10:09
INR 1.17 04/15/23 10:09
04/15/23
10:09
Lkv-D-Rmrkxxwuwiw Pept 1960
LAB Results
04/15/23 04/15/23 04/15/23
10:09 15:51 22:01
Troponin I 0.074 H* 2.090 H* D 2.030 H*
Physical Exam
Constitutional: No acute distress and Comfortable
EENT: Anicteric
Cardiovascular: Rhythm & rate is regular, Pedal edema is absent, Systolic murmur present (03/07) and S1S2 is normal
Respiratory: Respiratory effort normal and Crackles Present (Bibasilar)
GI: Soft
Neuro/Psych: AO x 3
Other: Skin (Warm, dry, intact)
Data Reviewed
-
Date of Service: April 16, 2023
EKG: Tracing Personally Visualized and interpreted (Telemetry: Sinus rhythm, frequent PVCs)
Echo: Report Reviewed by me (Echocardiogram 04/15/2023: EF 25%, dilated LV, global hypokinesis; moderate MR.)
Medical Tests (PFT, Pathology etc): Discussed with Physician (Interventional Cardiology, primary Hospitalist), Discussed with Nurse and Discussed with Patient
Labs: Labs Reviewed by me
[2023-04-16 08:59] LABS: Hematocrit 40.9 % (39.0-52.0); Hemoglobin 14.4 g/dL (13.0-18.0); Mean Corp Hgb Conc. 35.2 g/dL (33.0-37.0); Mean Corpuscular Hgb 30.6 pg (27.0-31.0); Mean Platelet Volume 10.4 fL (7.4-10.4); Platelet Count 346 10^3/uL (130-400); Red Cell Dist. Width 12.3 % (11.5-14.5); White Blood Cell Count 8.3 10^3/uL (4.8-10.8)
[2023-04-16] MEDS: TOPROL XL 25 MG PO (09:11)
[2023-04-16] MEDS: LIPITOR 80 MG PO (09:11)
[2023-04-16] MEDS: ZOFRAN 4 MG IV (09:29)
[2023-04-16 09:39] LABS: Blood Urea Nitrogen 14 mg/dl (9-20); Calcium 9.4 mg/dl (8.4-10.2); Carbon Dioxide 27 mmol/L (22-30); Chloride 100 mmol/L (98-107); Estimated Creatinine Clearance > 125 ml/min; Glucose 118 mg/dl (70-99); HDL Cholesterol 38 mg/dl; LDL Cholesterol, Calculated 86 mg/dl; Potassium 4.2 mmol/L (3.5-5.1); Sodium 133 mmol/L (135-145); Total Cholesterol 146 mg/dl (50-199); Triglyceride 113 mg/dl (10-149); Very Low Density Lipoprotein 22 mg/dl (0-30); eGFR > 60.00
[2023-04-16 09:59] LABS: TSH Reflex To Free T4 0.69 uIU/ml (0.47-4.68)
[2023-04-16] MEDS: NON-FORMULARY ITEM 200 MG PO ×2 (11:16→20:09)
--- NOTE | 2023-04-16 11:45 | PTCARENOTE ---
Report called and pt picked up in bed for medical laboratory technician. w/ pt.
--- NOTE | 2023-04-16 12:05 | CM ---
Patient seen bedside with , Melissa, initial assessment completed. Patient reports he lives with his in a single story home, denies DME, VN, or SNF. Patient confirms PCP Dr. Munoz, pharmacy used [facility] on [address]. Per updated
notes, patient scheduled for cardiac catheterization today. CM will continue to follow for discharge planning needs.
Plan; home with , no needs anticipated.
[2023-04-16 12:13] LABS: Glycohemoglobin (HgbA1c) 6.4 % (4.0-5.6)
[2023-04-16] MEDS: ROBITUSSIN PO (12:24)
--- NOTE | 2023-04-16 13:22 | W.PN.HOSP.TC ---
Today's Communication/Plan
-
Monitor vital signs see plan
Cardiac catheterization today
Wean oxygen as tolerated
IV Lasix
Assessment / Plan
Assessment / Plan
General:�Comfortable and Conversant
HEENT:�Anicteric, Moist mucous membranes and Oxygen (Nasal Cannula)
Respiratory:�Rales (Bilaterally from bases to about 2/[address] lung adams)
Cardiac:�S1/S2 and Regular Rhythm; No Murmur
GI:�Soft, Non Tender and Non Distended
Musculoskeletal:�No Clubbing, No Cyanosis and No Edema
Skin:�Warm and Dry
Neuro:�Awake, Alert, Oriented and Nonfocal/grossly intact
Acute Heart Failure with reduced ejection fraction
Acute hypoxic respiratory insufficiency secondary to above
Echo 04/15 with EF 45% with global hypokinesis and moderate MR.
Cardiology following, plan for cardiac catheterization today
Continue with Lasix
Elevated troponin
Likely secondary to NSTEMI versus type II MD
Troponin peaked at 2
Was not started on heparin overnight as patient received Lovenox yesterday evening
DM
not on medical therapy
A1c 6.4
ISS,accuchecks
camila will need more diabetic education
Hyponatremia
monitor
Obesity secondary to excess calories
Suspected sleep apnea
Recent Pneumonia
procal neg; finish last day abx
recent influenza infection
DVT proph: Lovenox
Code Status: Full Code
Anticipated Discharge: > 48 hours
Subjective/Interval History
-
Date of Service: April 16, 2023
denies pain
Objective Data
-
Labs:
Laboratory Results
04/16/23
08:27
WBC 8.3
Hgb 14.4
Hct 40.9
Plt Count 346
Sodium 133 L
Potassium 4.2
Chloride 100
Carbon Dioxide 27
BUN 14
Creatinine 0.8
Glucose 118 H
Calcium 9.4
Vital Signs:
Vital Signs
Temp Pulse Resp BP Pulse Ox
98.5 F 100 18 108/78 93
04/16/23 07:48 04/16/23 09:11 04/16/23 07:48 04/16/23 09:11 04/16/23 09:19
I&O
04/15/23 04/16/23 04/17/23
06:59 06:59 06:59
Intake Total 1200 / 1200
Output Total 1750 / 1750 675 / 675
Balance -550 / -550 -675 / -675
--- NOTE | 2023-04-16 13:29 | ITS.CL.CATH ---
Tool Procurement Coordinator - Catheterization
Cardiac Catheterization
Procedure Report:
CARDIAC CATHETERIZATION REPORT
Date of Procedure: 04/16/2023
Referring: Osei Pearce M.D.
Indication: New cardiomyopathy, elevated troponin.
PROCEDURE:
1. Right heart catheterization.
2. Left heart catheterization.
3. Coronary angiography.
4. Sat run.
ACCESS:
6 Mongolian right radial artery.
5 Mongolian right antecubital vein.
CATHETERS:
1. 5 Mongolian balloon wedge.
2. 5 Mongolian JL 3.5.
3. 5 Mongolian JR4.
HEMODYNAMIC DATA
Weight (kg): 101.6
AO (s/d/x mmHg): 99/78/86
LV (s/x mmHg): 100/27 (A wave to 42)
PCWP (a/v/x mmHg): 35/33/27
PA (s/d/x mmHg): 42//31
RV (s/x mmHg): 42/9
RA (a/v/x mmHg): 15
SVC SvO2 (%): 46.3
PA (right) SvO2 (%): 55.1
SaO2 (%): 85.4
Hbg (g/dL): 14.4
SVC (repeat) SvO2 (%): 58.4
IVC SvO2 (%): 54.7
RA SvO2 (%): 55.6
RV SvO2 (%): 52.7
PA (left) SvO2 (%): 53.0
Mixed SvO2 (%): 57.5
CO (L/min): 4.44
CI (L/min/m2): 2.03
TPG (mmHg): 4
PVR (Bernabe Units): 0.90
SVR (dynes*seconds*cm^-5): 1387
AVO2 Diff (Volume %): 5.93
AV gradient (x, mmHg): None.
AV area (cm2): Normal.
LEFT VENTRICULOGRAPHY: Not performed.
CORONARY ANGIOGRAPHY
Dominance: Right.
Left Main: Normal size, trifurcating vessel. There is no coronary artery disease.
LAD: Large size vessel giving rise to 2 significant diagonals before wrapping around the apex. There is no coronary artery disease.
Ramus: Vestigial, 1 mm vessel.
Circumflex: Normal size, nondominant vessel that is essentially 1 large marginal. There are minor luminal irregularities.
RCA: Enormous, dominant vessel with a large posterolateral arcade supplying the entire inferolateral wall. There is no coronary artery disease.
INTERVENTIONS
Sat run performed for left to right shunt in the context of initial screening abnormality.
Narrative:
Initial shunt screening was positive with a 9% difference between the superior vena cava sat and the pulmonary artery sat. Accordingly, the patient underwent a sat run including sampling of the contralateral pulmonary artery, the right ventricle,
right atrium, IVC and a repeat SVC sat. On repeat testing, no step up was observed in the SVC sat no longer demonstrated meaningful difference from the mixed venous or pulmonary artery saturations.
Closure Device: Vascular band for the right radial artery, manual pressure for the right antecubital vein.
Radiation dose (mGy): 399.90
DAP (cm2.Gy): 28.8026
Fluoroscopy time (minutes): 4.7
Sedation time (minutes): 5
CONCLUSIONS:
1. Right dominant circulation with no significant coronary artery disease.
2. Severely elevated filling pressures (LVEDP = 27 mmHg, PCWP = 27 mmHg at 101.6 kg) with evidence of significant diastolic dysfunction (A wave to 42 mmHg).
3. Significant myocardial dysfunction (cardiac index 2.03 L/min/m�).
4. No evidence of intramyocardial shunt on sat run.
RECOMMENDATIONS:
1. Expectant management after cardiac catheterization via right radial/antecubital approach.
2. Limited weight bearing on the right wrist for one week.
3. Continue aggressive diuresis given severely elevated filling pressures and low cardiac index.
4. Guideline directed medical therapy when hemodynamics will tolerate.
5. Transfer from fourth floor to IVU.
Copy to: Osei Pearce M.D., Nicolás Garcia D.O.
Brennon Soriano DO, FACC, FACP
--- NOTE | 2023-04-16 14:03 | PTCARENOTE ---
received pt from recovery area. Right radial and right brachial sites CDI. R-band intact. Educated pt on restrictions. Oriented to room and unit. Call mayo within reach.
[2023-04-16] MEDS: LASIX 80 MG IV (14:18)
--- NOTE | 2023-04-16 14:27 | CM ---
Pricing on Jardiance is $68 for a one month supply.
Farxiga is $15. The patient has commercial insurance and qualifies for the copay coupon. I let Geovanna Castro know. I will place a copay card in the red discharge folder, based on medication decision.
--- NOTE | 2023-04-16 15:30 | PTCARENOTE ---
Assumed care of patient from prior RN. AAO x3 sitting up in bed. RT arm radial band intact, pulse palpable. RT brachial site also c,d,i. Pulse palpable. Denies pain. Assessment otherwise with in normal limits
--- NOTE | 2023-04-16 17:16 | PTCARENOTE ---
vital signs down loaded for previous shift.
[2023-04-16 18:04] LABS: Glucose - Point of Care 94 mg/dl (70-99)
[2023-04-16 22:39] LABS: Glucose - Point of Care 108 mg/dl (70-99)
--- NOTE | 2023-04-16 23:37 | PTCARENOTE ---
Pt received at start of shift, HR SR/ST w/ PVCs 90s-100s. R radial and R brachial dressing CDI. Pt educated on plan of care, pt states no further questions. Pt denies any CP, worsening SOB, or lightheadedness/dizziness at this time. Informed to
notify RN if any changes, call mayo within reach.
[2023-04-17] VITALS (10 sets, daily range): BP systolic 88–116; BP diastolic 65–89; BMI 31.9
[2023-04-17 04:00] LABS: Blood Urea Nitrogen 17 mg/dl (9-20); Calcium 9.3 mg/dl (8.4-10.2); Carbon Dioxide 30 mmol/L (22-30); Chloride 94 mmol/L (98-107); Estimated Creatinine Clearance > 125 ml/min; Glucose 105 mg/dl (70-99); Sodium 133 mmol/L (135-145); eGFR > 60.00
[2023-04-17 07:27] LABS: Glucose - Point of Care 106 mg/dl (70-99)
[2023-04-17] MEDS: LOW STRENGTH ASPIRIN 81 MG PO (09:04)
[2023-04-17] MEDS: VIBRAMYCIN 100 MG PO ×2 (09:09→19:54)
[2023-04-17] MEDS: FARXIGA 10 MG PO (09:12)
[2023-04-17] MEDS: LASIX 80 MG IV (09:13)
--- NOTE | 2023-04-17 10:16 | W.PN.CD ---
Today's Communication / Plan
-
-Right and left heart cardiac catheterization yesterday revealed significantly elevated filling pressures, but no CAD.
-Continue Toprol-XL 25 mg daily; PVCs noted on telemetry, but no VT.
-No ACEi/ARB/ARNi for due to blood pressure limitations.
-Continue Farxiga.
-Continue Lasix 80 mg IV BID.
-Will decrease atorvastatin to 20 mg daily.
Impression / Plan
-
53 y/o male with hypertension, obesity on Ozempic, DM (not currently on medicines), suspected FAMILIA (not yet treated), hx dyslipidemia (normal on most recent OP labs), former smoker who is here for evaluation of SOB and chest discomfort when taking
deep breaths and coughing.� He endorses symptoms that began in January but continued despite treatment of influenza.� He has had recurrent ED visits.� He is clearly describing episodes of orthopnea and PND.� He has been losing weight with Ozempic.�
He did see a test grader as an outpatient but no testing was done as they were waiting for him to recover from the flu. Patient is currently being treated with antibiotics for suspected pneumonia. Echocardiogram revealed a dilated left ventricle
with an EF of 25% with global hypokinesis and moderate MR.
Acute HFrEF/NICM (EF 25%) with dilated left ventricle and moderate MR (likely functional MR):
-BNP 1920.
-Right and left heart cardiac catheterization yesterday revealed significantly elevated filling pressures, but no CAD.
-Continue Toprol-XL 25 mg daily; PVCs noted on telemetry, but no VT.
-No ACEi/ARB/ARNi for due to blood pressure limitations.
-Continue Farxiga.
-Continue Lasix 80 mg IV BID.
Elevated troponin:
-Secondary to acute nonischemic myocardial injury in the setting of CHF exacerbation and infection.
-Troponin peaked at 2.
Prediabetes:
-Hemoglobin A1c is 6.4%.
-Will decrease atorvastatin to 20 mg daily.
PNA:
-PNA management per primary team; on antibiotics.
HTN:
-on olmesartan as OP
-Will continue to monitor with medication adjustments above.
DM2:
-not on medical therapy; was on Ozempic for weight loss.
-Hemoglobin A1c pending.
Obesity:
-improving with Ozempic
Suspected sleep apnea:
-Management as per primary team.
Physical Exam
Vital Signs/Labs
Vital Signs
Temp Pulse Resp BP Pulse Ox
97.9 F 97 20 102/68 94
04/17/23 07:20 04/17/23 09:13 04/17/23 07:20 04/17/23 09:13 04/17/23 07:24
04/16/23 04/17/23 04/18/23
06:59 06:59 06:59
Actual Weight 101.605 kg 100.9 kg
04/16/23 08:27
04/17/23 02:42
PT 15.0 Sec (11.4-14.6) H 04/15/23 10:09
INR 1.17 04/15/23 10:09
Magnesium 2.0 mg/dl (1.6-2.3) 04/16/23 08:27
Triglycerides 113 mg/dl (10-149) 04/16/23 08:27
LDL Cholesterol, Calc 86 mg/dl 04/16/23 08:27
VLDL Cholesterol, Calc 22 mg/dl (0-30) 04/16/23 08:27
HDL Cholesterol 38 mg/dl 04/16/23 08:27
04/15/23
10:09
Szx-L-Akjcpeokgxp Pept 1960
LAB Results
04/15/23 04/15/23 04/15/23
10:09 15:51 22:01
Troponin I 0.074 H* 2.090 H* D 2.030 H*
Physical Exam
Constitutional: No acute distress and Comfortable
EENT: Anicteric
Cardiovascular: Rhythm & rate is regular, Pedal edema is absent, Systolic murmur present (Soft 2/6) and S1S2 is normal
Respiratory: Respiratory effort normal and Rhonchi Present (Mild bibasilar)
GI: Soft
Neuro/Psych: AO x 3
Other: Skin (Warm, dry, intact)
Data Reviewed
-
Date of Service: April 17, 2023
EKG: Tracing Personally Visualized and interpreted (Telemetry: Sinus rhythm, PVCs)
Echo: Report Reviewed by me (EF 25%)
Medical Tests (PFT, Pathology etc): Report Reviewed by me (Cardiac catheterization: No CAD, elevated filling pressures.)
Labs: Labs Reviewed by me
--- NOTE | 2023-04-17 11:21 | CM ---
Chart reviewed. Patient is independent of ADLS, lives with his in a 1 STH, 0 DME. Patient currently with no discharge needs. Plan is for the patient to return home when medically stable. CM to follow
[2023-04-17] MEDS: TOPROL XL 25 MG PO (11:46)
[2023-04-17] MEDS: ROBITUSSIN 200 MG PO ×3 (11:46→22:26)
[2023-04-17 12:20] LABS: Glucose - Point of Care 96 mg/dl (70-99)
--- NOTE | 2023-04-17 13:05 | W.PN.HOSP.TC ---
Today's Communication/Plan
-
Monitor vital signs and see plan
Continue with IV Lasix
Wean oxygen as tolerated
Assessment / Plan
Assessment / Plan
General:�Comfortable and Conversant
HEENT:�Anicteric, Moist mucous membranes and Oxygen (Nasal Cannula)
Respiratory:�Clear to auscultation, mild rales
Cardiac:�S1/S2 and Regular Rhythm; No Murmur
GI:�Soft, Non Tender and Non Distended
Musculoskeletal:�No Clubbing, No Cyanosis and No Edema
Skin:�Warm and Dry
Neuro:�Awake, Alert, Oriented and Nonfocal/grossly intact
Acute Heart Failure with reduced ejection fraction
Acute hypoxic respiratory insufficiency secondary to above
Echo 04/15 with EF 45% with global hypokinesis and moderate MR.
Cardiology following, s/p Cath 04/16 with no CAD, however significantly elevated filling pressures. Continue with IV Lasix.
Elevated troponin
Likely secondary to acute nonischemic myocardial injury in the setting of CHF
Troponin peaked at 2
new onset DM
not on medical therapy
A1c 6.4
ISS,accuchecks
Diabetic education
Hyponatremia
monitor
Obesity secondary to excess calories
Suspected sleep apnea
Recent Pneumonia
procal neg; finished last day abx
recent influenza infection
DVT proph: Lovenox
Code Status: Full Code
Anticipated Discharge: 24 - 48 hours
Subjective/Interval History
-
Date of Service: April 17, 2023
denies pain
Objective Data
-
Labs:
Laboratory Results
04/17/23
02:42
Sodium 133 L
Potassium 4.0
Chloride 94 L
Carbon Dioxide 30
BUN 17
Creatinine 0.8
Glucose 105 H
Calcium 9.3
Vital Signs:
Vital Signs
Temp Pulse Resp BP Pulse Ox
98.6 F 97 20 90/66 97
04/17/23 12:22 04/17/23 11:46 04/17/23 12:22 04/17/23 11:46 04/17/23 09:10
I&O
04/16/23 04/17/23 04/18/23
06:59 06:59 06:59
Intake Total 1200 / 1200
Output Total 1750 / 1750 1874
Balance -550 / -550 -1874 / -1874
[2023-04-17] MEDS: ROBITUSSIN PO (13:26)
--- NOTE | 2023-04-17 15:54 | PN.DE ---
Diabetes Education
- -
Diabetes Education
Met with pt and his at bedside for pre-diabetes education. Current A1C of 6.4%.
Discussed life style modification, pt states he was aware of prediabetes Dx and that he was started on Ozempic 6 weeks ago by his PCP for weight loss. Says he has lost 22 pounds since start on Ozempic and is hoping to lose more weight. He reports
that he has also changed his diet to a low CHO diet and is looking into an exercise routine. Discussed in depth the importance of ongoing reduction of CHO intake, being active and encouraged physical activity.
Pt was provide with take home booklet and Information for [facility] Prediabetes out patient education session and stated that he will call the office and register.
[2023-04-17 16:43] LABS: Glucose - Point of Care 89 mg/dl (70-99)
[2023-04-17] MEDS: LIPITOR 20 MG PO (18:33)
[2023-04-17] MEDS: FLUSH (NSS) 1 FLUSH IV (19:54)
--- NOTE | 2023-04-17 21:22 | PTCARENOTE ---
Received patient at change of shift this PM. AAOx3. VSS. He is NSR/ST on the monitor with PVS. HR in the 110s. INT patent. Right antecubital and radial sites appear clean, dry, and intact. No bleeding. No hematoma. He denies chest pain or
discomfort. He does report a bothersome frequent dry cough and we discussed his medications for this. Plan of care discussed. He is receptive to teaching and motivated. We discussed his medications and he has no further questions about these at this
time. He denies pain and appears comfortable in bed. Will continue to monitor.
[2023-04-17 22:01] LABS: Glucose - Point of Care 105 mg/dl (70-99)
[2023-04-18] VITALS (7 sets, daily range): BP systolic 110–134; BP diastolic 72–93; BMI 31.9
[2023-04-18] MEDS: DUONEB 3 ML INH ×2 (05:05→21:57)
[2023-04-18 05:53] LABS: Blood Urea Nitrogen 20 mg/dl (9-20); Calcium 9.9 mg/dl (8.4-10.2); Carbon Dioxide 28 mmol/L (22-30); Chloride 91 mmol/L (98-107); Estimated Creatinine Clearance 113 ml/min; Glucose 118 mg/dl (70-99); Potassium 3.7 mmol/L (3.5-5.1); Sodium 132 mmol/L (135-145); eGFR > 60.00
[2023-04-18] MEDS: ROBITUSSIN 200 MG PO ×4 (06:28→22:22)
[2023-04-18 07:18] LABS: Glucose - Point of Care 118 mg/dl (70-99)
--- NOTE | 2023-04-18 08:27 | W.PN.CD ---
Today's Communication / Plan
-
increase lasix to bid
po metolazone 5mg x1 today
tesslon pearls
Impression / Plan
-
53 y/o male with hypertension, obesity on Ozempic, DM (not currently on medicines), suspected FAMILIA (not yet treated), hx dyslipidemia (normal on most recent OP labs), former smoker who is here for evaluation of SOB and chest discomfort when taking
deep breaths and coughing.� He endorses symptoms that began in January but continued despite treatment of influenza.� He has had recurrent ED visits.� He is clearly describing episodes of orthopnea and PND.� He has been losing weight with Ozempic.�
He did see a stump shooter as an outpatient but no testing was done as they were waiting for him to recover from the flu. Patient is currently being treated with antibiotics for suspected pneumonia. Echocardiogram revealed a dilated left ventricle
with an EF of 25% with global hypokinesis and moderate MR.
Acute HFrEF/NICM (EF 25%) with dilated left ventricle and moderate MR (likely functional MR):
-PCWP 27 at 101.6 KG
-no great response to IV Lasix, will make BID--will add metolazone x 1 this am
-Continue Toprol-XL 25 mg daily; PVCs noted on telemetry, but no VT.
-No ACEi/ARB/ARNi for due to blood pressure limitations.
-Continue Farxiga.
-cough persists likely fluid but will also add some tesslon pearls
Elevated troponin:
-Secondary to acute nonischemic myocardial injury in the setting of CHF exacerbation and infection.
-Troponin peaked at 2.
Prediabetes:
-Hemoglobin A1c is 6.4%.
-Continue atorvastatin to 20 mg daily.
PNA:
-PNA management per primary team; on antibiotics.
HTN:
-on olmesartan as OP
-Will continue to monitor with medication adjustments above.
DM2:
-not on medical therapy; was on Ozempic for weight loss.
-Hemoglobin A1c pending.
Obesity:
-improving with Ozempic
Suspected sleep apnea:
-Management as per primary team.
Subjective
awful cough especially while lying flat, no cp or pressure sob improving
04/15/23 [facility]: HEMODYNAMIC DATA
Weight (kg): 101.6
AO (s/d/x mmHg):� 99/78/86
LV (s/x mmHg):� 100/27 (A wave to 42)
PCWP (a/v/x mmHg):� 35
PA (s/d/x mmHg):�
RV (s/x mmHg):�
RA (a/v/x mmHg):�
SVC SvO2 (%): 46.3
PA (right) SvO2 (%): 55.1
SaO2 (%): 85.4
Hbg (g/dL): 14.4
CO (L/min):� 4.44
CI (L/min/m2):� 2.03
TPG (mmHg):� 4
PVR (Bernabe Units):� 0.90
SVR (dynes*seconds*cm^-5):� 1387
AVO2 Diff (Volume %):� 5.93
Physical Exam
Vital Signs/Labs
Vital Signs
Temp Pulse Resp BP Pulse Ox
97.7 F 103 16 122/76 93
04/18/23 07:21 04/18/23 07:45 04/18/23 07:21 04/18/23 07:18 04/18/23 07:21
04/17/23 04/18/23 04/19/23
06:59 06:59 06:59
Actual Weight 100.9 kg 101 kg
04/16/23 08:27
04/18/23 05:00
PT 15.0 Sec (11.4-14.6) H 04/15/23 10:09
INR 1.17 04/15/23 10:09
Magnesium 2.0 mg/dl (1.6-2.3) 04/16/23 08:27
Triglycerides 113 mg/dl (10-149) 04/16/23 08:27
LDL Cholesterol, Calc 86 mg/dl 04/16/23 08:27
VLDL Cholesterol, Calc 22 mg/dl (0-30) 04/16/23 08:27
HDL Cholesterol 38 mg/dl 04/16/23 08:27
04/15/23
10:09
Lon-R-Ecrzpkanhnv Pept 1960
LAB Results
04/15/23 04/15/23 04/15/23
10:09 15:51 22:01
Troponin I 0.074 H* 2.090 H* D 2.030 H*
Physical Exam
Constitutional: No acute distress
Cardiovascular: Rhythm & rate is regular, Pedal edema is absent, Systolic murmur absent, Diastolic murmur absent and JVD present
Respiratory: Respiratory effort normal, Lungs clear to auscul., Wheeze Absent, Crackles Absent and Rhonchi Absent
Neuro/Psych: AO x 3
Data Reviewed
-
Date of Service: April 18, 2023
X-Ray/CT/US/MRI/NUC/PET: Discussed with Physician (increasing diuresis attemps) and Discussed with Nurse (give metolazone iv lasix change to bid)
[2023-04-18] MEDS: ZAROXOLYN 5 MG PO (08:46)
[2023-04-18] MEDS: TOPROL XL 25 MG PO (08:47)
[2023-04-18] MEDS: FARXIGA 10 MG PO (08:47)
[2023-04-18] MEDS: LOW STRENGTH ASPIRIN 81 MG PO (08:47)
[2023-04-18] MEDS: VIBRAMYCIN 100 MG PO (08:48)
[2023-04-18] MEDS: LASIX 80 MG IV ×2 (08:49→16:32)
[2023-04-18] MEDS: FLUSH (NSS) 2 FLUSH IV (08:49)
--- NOTE | 2023-04-18 11:06 | PTCARENOTE ---
Received patient this morning resting in bed. Chief complaint is his persistent NPC which is interfering with his sleep. Cardiology in to see the patient and IV lasix increased to BID. Reinforced limiting PO fluids and the need for accurate I&O.
[2023-04-18] MEDS: TESSALON PERLES 100 MG PO ×2 (11:18→19:41)
--- NOTE | 2023-04-18 12:13 | W.PN.HOSP.TC ---
Today's Communication/Plan
-
Monitor vital signs and see plan
Increase Lasix to twice daily
Agree with metolazone
Given potassium given diuresis
Assessment / Plan
Assessment / Plan
General:�Comfortable and Conversant
HEENT:�Anicteric, Moist mucous membranes
Respiratory:�Clear to auscultation, mild rales
Cardiac:�S1/S2 and Regular Rhythm; No Murmur
GI:�Soft, Non Tender and Non Distended
Musculoskeletal:�No Clubbing, No Cyanosis and No Edema
Skin:�Warm and Dry
Neuro:�Awake, Alert, Oriented and Nonfocal/grossly intact
Acute Heart Failure with reduced ejection fraction
Acute hypoxic respiratory insufficiency secondary to above, now weaned off oxygen
Echo 04/15 with EF 45% with global hypokinesis and moderate MR.
Cardiology following, s/p Cath 04/16 with no CAD, however significantly elevated filling pressures. Continue with IV Lasix, increased to twice daily. Metolazone 04/18
cw toprol
Elevated troponin
Likely secondary to acute nonischemic myocardial injury in the setting of CHF
Troponin peaked at 2
new onset DM
not on medical therapy
A1c 6.4
ISS,accuchecks
Diabetic education
Hyponatremia
monitor
Obesity secondary to excess calories
Suspected sleep apnea
Recent Pneumonia
procal neg; finished last day abx
recent influenza infection
DVT proph: Lovenox
Code Status: Full Code
Anticipated Discharge: > 48 hours
Subjective/Interval History
-
Date of Service: April 18, 2023
Denies pain
Objective Data
-
Labs:
Laboratory Results
04/18/23
05:00
Sodium 132 L
Potassium 3.7
Chloride 91 L
Carbon Dioxide 28
BUN 20
Creatinine 0.9
Glucose 118 H
Calcium 9.9
Vital Signs:
Vital Signs
Temp Pulse Resp BP Pulse Ox
97.8 F 94 16 112/93 97
04/18/23 11:12 04/18/23 11:30 04/18/23 11:12 04/18/23 11:12 04/18/23 11:12
I&O
04/17/23 04/18/23 04/19/23
06:59 06:59 06:59
Intake Total 840 / 840 480 / 480
Output Total 1875 / 1875 850 / 850 900 / 900
Balance -1875 / -1875 -10 / -10 -420 / -420
[2023-04-18 12:15] LABS: Glucose - Point of Care 97 mg/dl (70-99)
[2023-04-18] MEDS: KCL 40 MEQ PO (12:50)
[2023-04-18] MEDS: FLUSH (NSS) 1 FLUSH IV ×2 (16:33→19:41)
[2023-04-18 16:58] LABS: Glucose - Point of Care 109 mg/dl (70-99)
[2023-04-18] MEDS: LIPITOR 20 MG PO (17:48)
--- NOTE | 2023-04-18 20:36 | PTCARENOTE ---
Received patient at change of shift this PM. AAOx3. VSS. He is ST/NSR on the monitor with PVCs. HR in the 90s-110s. INT patent. Right antecubital and radial sites appear MEAT GRINDER and clean, dry, and intact. He denies chest pain or discomfort. Plan of
care discussed. He is receptive to teaching and motivated. We discussed his medications and he has no further questions about these at this time. He appears comfortable in bed. Will continue to monitor.
[2023-04-18 21:48] LABS: Glucose - Point of Care 126 mg/dl (70-99)
[2023-04-19 05:43] VITALS: BP 112/89
[2023-04-19 05:47] VITALS: BMI 31.1
[2023-04-19] MEDS: ROBITUSSIN 200 MG PO ×4 (06:58→21:51)
[2023-04-19 07:22] VITALS: BP 134/81
[2023-04-19 07:27] LABS: Glucose - Point of Care 129 mg/dl (70-99)
[2023-04-19] MEDS: TOPROL XL 25 MG PO (08:55)
[2023-04-19] MEDS: LOW STRENGTH ASPIRIN 81 MG PO (08:55)
[2023-04-19] MEDS: FARXIGA 10 MG PO (08:55)
[2023-04-19] MEDS: TESSALON PERLES 100 MG PO ×2 (08:56→23:02)
[2023-04-19 09:30] LABS: Blood Urea Nitrogen 28 mg/dl (9-20); Calcium 10.2 mg/dl (8.4-10.2); Carbon Dioxide 32 mmol/L (22-30); Chloride 90 mmol/L (98-107); Estimated Creatinine Clearance 91 ml/min; Glucose 181 mg/dl (70-99); Potassium 3.2 mmol/L (3.5-5.1); Sodium 132 mmol/L (135-145); eGFR > 60.00
[2023-04-19] MEDS: LASIX 80 MG IV ×2 (10:00→16:56)
[2023-04-19] MEDS: FLUSH (NSS) 2 FLUSH IV (10:01)
--- NOTE | 2023-04-19 10:46 | PTCARENOTE ---
Received patient this morning sitting oob in the chair. Slept well last night, states he didn't cough all night until after breakfast this morning. BMP ordered and drawn, K+ 3.2, Dr. Quach in to see the patient and will replete.
[2023-04-19 11:34] VITALS: BP 111/80
[2023-04-19 11:44] LABS: Glucose - Point of Care 111 mg/dl (70-99)
--- NOTE | 2023-04-19 13:16 | W.PN.HOSP.TC ---
Today's Communication/Plan
-
Monitor vital signs see plan
Continue with IV Lasix, diuresing well
Replete potassium
Assessment / Plan
Assessment / Plan
General:�Comfortable and Conversant
HEENT:�Anicteric, Moist mucous membranes
Respiratory:�Clear to auscultation, mild rales
Cardiac:�S1/S2 and Regular Rhythm; No Murmur
GI:�Soft, Non Tender and Non Distended
Musculoskeletal:�No Clubbing, No Cyanosis and No Edema
Skin:�Warm and Dry
Neuro:�Awake, Alert, Oriented and Nonfocal/grossly intact
Acute Heart Failure with reduced ejection fraction
Acute hypoxic respiratory insufficiency secondary to above, now weaned off oxygen
Echo 04/15 with EF 45% with global hypokinesis and moderate MR.
Cardiology following, s/p Cath 04/16 with no CAD, however significantly elevated filling pressures. Continue with IV Lasix, increased to twice daily. Metolazone 04/18 with good response
cw toprol
Elevated troponin
Likely secondary to acute nonischemic myocardial injury in the setting of CHF
Troponin peaked at 2
Hypokalemia
replete
new onset DM
not on medical therapy
A1c 6.4
ISS,accuchecks
Diabetic education
Hyponatremia
monitor
Obesity secondary to excess calories
Suspected sleep apnea
Recent Pneumonia
procal neg; finished last day abx
recent influenza infection
DVT proph: Lovenox
Code Status: Full Code
Anticipated Discharge: 24 - 48 hours
Subjective/Interval History
-
Date of Service: April 19, 2023
denies pain
Objective Data
-
Labs:
Laboratory Results
04/19/23
09:02
Sodium 132 L
Potassium 3.2 L
Chloride 90 L
Carbon Dioxide 32 H
BUN 28 H
Creatinine 1.1
Glucose 181 H
Calcium 10.2
Vital Signs:
Vital Signs
Temp Pulse Resp BP Pulse Ox
97.7 F 110 20 111/80 95
04/19/23 11:30 04/19/23 12:00 04/19/23 11:30 04/19/23 11:34 04/19/23 11:34
I&O
04/18/23 04/19/23 04/20/23
06:59 06:59 06:59
Intake Total 840 / 840 1560 / 1560 480 / 480
Output Total 850 / 850 4450 / 4450 450 / 450
Balance -10 / -10 -2890 / -2890
[2023-04-19] MEDS: KCL 40 MEQ PO ×2 (13:42→16:56)
--- NOTE | 2023-04-19 16:34 | W.PN.CD ---
Today's Communication / Plan
-
continue diureisis
add gdmt as bp allows
Impression / Plan
-
53 y/o male with hypertension, obesity on Ozempic, DM (not currently on medicines), suspected FAMILIA (not yet treated), hx dyslipidemia (normal on most recent OP labs), former smoker who is here for evaluation of SOB and chest discomfort when taking
deep breaths and coughing.� He endorses symptoms that began in January but continued despite treatment of influenza.� He has had recurrent ED visits.� He is clearly describing episodes of orthopnea and PND.� He has been losing weight with Ozempic.�
He did see a home health care case manager as an outpatient but no testing was done as they were waiting for him to recover from the flu. Patient is currently being treated with antibiotics for suspected pneumonia. Echocardiogram revealed a dilated left ventricle
with an EF of 25% with global hypokinesis and moderate MR.
Acute HFrEF/NICM (EF 25%) with dilated left ventricle and moderate MR (likely functional MR):
-PCWP 27 at 101.6 KG
-finally a good response to diuresis wt down to 98.3 from 101 (04/18) and 102.2 on admission
-Continue Toprol-XL 25 mg daily; PVCs noted on telemetry, but no VT.
-No ACEi/ARB/ARNi/MRA for due to blood pressure limitations----add on discharge if bp allows
-Continue Farxiga.
-cough persists likely fluid but improved with impressive diuresis over night.
Elevated troponin:
-Secondary to acute nonischemic myocardial injury in the setting of CHF exacerbation and infection.
-Troponin peaked at 2.
Prediabetes:
-Hemoglobin A1c is 6.4%.
-Continue atorvastatin to 20 mg daily.
PNA:
-PNA management per primary team; on antibiotics.
HTN:
-on olmesartan as OP
-Will continue to monitor with medication adjustments above.
DM2:
-not on medical therapy; was on Ozempic for weight loss.
-Hemoglobin A1c pending.
Obesity:
-improving with Ozempic
Suspected sleep apnea:
-Management as per primary team.
Subjective
cough is improving with diuresis
04/15/23 [facility]: HEMODYNAMIC DATA
Weight (kg): 101.6
AO (s/d/x mmHg):� 99/78/86
LV (s/x mmHg):� 100/27 (A wave to 42)
PCWP (a/v/x mmHg):�
PA (s/d/x mmHg):�
RV (s/x mmHg):�
RA (a/v/x mmHg):�
SVC SvO2 (%): 46.3
PA (right) SvO2 (%): 55.1
SaO2 (%): 85.4
Hbg (g/dL): 14.4
CO (L/min):� 4.44
CI (L/min/m2):� 2.03
TPG (mmHg):� 4
PVR (Bernabe Units):� 0.90
SVR (dynes*seconds*cm^-5):� 1387
AVO2 Diff (Volume %):� 5.93
Physical Exam
Vital Signs/Labs
Vital Signs
Temp Pulse Resp BP Pulse Ox
97.7 F 110 20 111/80 95
04/19/23 11:30 04/19/23 12:00 04/19/23 11:30 04/19/23 11:34 04/19/23 11:34
04/18/23 04/19/23 04/20/23
06:59 06:59 06:59
Actual Weight 101 kg 98.3 kg
04/16/23 08:27
04/19/23 09:02
PT 15.0 Sec (11.4-14.6) H 04/15/23 10:09
INR 1.17 04/15/23 10:09
Magnesium 2.0 mg/dl (1.6-2.3) 04/16/23 08:27
Triglycerides 113 mg/dl (10-149) 04/16/23 08:27
LDL Cholesterol, Calc 86 mg/dl 04/16/23 08:27
VLDL Cholesterol, Calc 22 mg/dl (0-30) 04/16/23 08:27
HDL Cholesterol 38 mg/dl 04/16/23 08:27
04/15/23
10:09
Ltj-B-Tqloxusnckb Pept 1960
Physical Exam
Constitutional: No acute distress
Cardiovascular: Rhythm & rate is regular, Pedal edema is absent, Systolic murmur absent and Diastolic murmur absent
Respiratory: Respiratory effort normal, Lungs clear to auscul., Wheeze Absent, Crackles Absent and Rhonchi Absent
Neuro/Psych: AO x 3
Data Reviewed
-
Date of Service: April 19, 2023
EKG: Other (tele sinus with pvcs)
[2023-04-19 16:52] VITALS: BP 110/91
[2023-04-19] MEDS: LIPITOR 20 MG PO (16:58)
[2023-04-19 18:17] LABS: Glucose - Point of Care 124 mg/dl (70-99)
[2023-04-19 19:11] VITALS: BP 115/81
[2023-04-19 21:49] LABS: Glucose - Point of Care 130 mg/dl (70-99)
[2023-04-19 23:00] VITALS: BP 131/86
--- NOTE | 2023-04-20 01:13 | PTCARENOTE ---
Continues with occasional non-productive cough. Voiding clear yellow urine. No complaints at present.
[2023-04-20 04:24] VITALS: BP 99/78
[2023-04-20 04:35] VITALS: BMI 31.1
[2023-04-20 06:16] LABS: Blood Urea Nitrogen 38 mg/dl (9-20); Calcium 10.2 mg/dl (8.4-10.2); Carbon Dioxide 29 mmol/L (22-30); Chloride 87 mmol/L (98-107); Estimated Creatinine Clearance 91 ml/min; Glucose 129 mg/dl (70-99); Potassium 3.2 mmol/L (3.5-5.1); Sodium 133 mmol/L (135-145); eGFR > 60.00
[2023-04-20 06:58] VITALS: BP 111/70
[2023-04-20 07:01] LABS: Glucose - Point of Care 133 mg/dl (70-99)
--- NOTE | 2023-04-20 07:36 | W.PN.HOSP.TC ---
Today's Communication/Plan
-
Continue IV diuresis
Continue attempted repletion of potassium oral potassium may be making him nauseous will give IV today
Addition of Aldactone ? defer to cardiology
Check magnesium level
Assessment / Plan
Assessment / Plan
General:�Comfortable and Conversant/with constant dry cough
HEENT:�Anicteric, Moist mucous membranes
Respiratory:�Clear to auscultation, mild rales
Cardiac:�S1/S2 and Regular Rhythm; No Murmur
GI:�Soft, Non Tender and Non Distended
Musculoskeletal:�No Clubbing, No Cyanosis and No Edema
Skin:�Warm and Dry
Neuro:�Awake, Alert, Oriented and Nonfocal/grossly intact
Acute Heart Failure with reduced ejection fraction of 25%
Acute hypoxic respiratory insufficiency secondary to above, now weaned off oxygen
Echo 04/15 with EF 25% with global hypokinesis and moderate MR.
Cardiology following, s/p Cath 04/16 with no CAD, however significantly elevated filling pressures. Continue with IV Lasix, increased to twice daily. Metolazone 04/18 with good response
Replete potassium
cw toprol
Elevated troponin
Likely secondary to acute nonischemic myocardial injury in the setting of CHF
Troponin peaked at 2
Hypokalemia
replete
Persisting nausea since arrival
-Ischemic?
-From furosemide?
-Potassium repletion causing nausea?
new onset DM
not on medical therapy
A1c 6.4
ISS,accuchecks
Diabetic education
Hyponatremia
monitor
Obesity secondary to excess calories
Suspected sleep apnea
Recent Pneumonia
procal neg; finished last day abx
recent influenza infection
DVT proph: Lovenox
Code Status: Full Code
Anticipated Discharge: 24 - 48 hours
Subjective/Interval History
-
Date of Service: April 20, 2023
2 main complaints are continued coughing is dry nonproductive and no states he did hear nausea without emesis he received several dosages of potassium yesterday for repletion his weight is unchanged from yesterday after losing about 3 kg the day
before. He denies any chest pain
Objective Data
-
Labs:
Laboratory Results
04/20/23
04:33
Sodium 133 L
Potassium 3.2 L
Chloride 87 L
Carbon Dioxide 29
BUN 38 H
Creatinine 1.1
Glucose 129 H
Calcium 10.2
Vital Signs:
Vital Signs
Temp Pulse Resp BP Pulse Ox
97.5 F 96 18 111/70 96
04/20/23 06:54 04/20/23 07:00 04/20/23 06:54 04/20/23 06:58 04/20/23 06:54
I&O
04/19/23 04/20/23 04/21/23
06:59 06:59 06:59
Intake Total 1560 / 1560 960 / 960
Output Total 4450 / 4450 1999 / 1999
Balance -2890 / -2890 -1040 / -1040
Review of Systems
-
History Source: Patient
Constitutional: Reports Fatigue
Respiratory: Reports Cough and Trouble Breathing (Feels like constantly cannot catch his breath)
Cardiac: Reports PND and Orthopnea
Abdomen/GI: Reports Nausea
Physical Exam
-
General: Well Developed
HEENT: Normocephalic
Respiratory: Clear to Auscultation
Cardiac: Irregular Rhythm (Sinus rhythm with frequent PVCs)
GI: Soft and Nontender
Skin: Warm, Dry and IV Access / Catheter Site
Neuro: Awake, Alert, Oriented, AO x 3 and No Motor Deficits
Psych: Calm
Data Reviewed
-
Total Time Spent with Patient (in minutes): 56
Medical Tests (Nuc Med, Echo etc): Report Reviewed by me (Reviewed results of right and left heart cath)
Labs: Labs Reviewed by me (Continued hypokalemia 3.2 in spite of repletion yesterday)
--- NOTE | 2023-04-20 08:34 | W.PN.CD ---
Today's Communication / Plan
-
replace potassium
check magnesium
cause of nausea unlear . Will hold Farxiga
continue to tx cough
Impression / Plan
-
53 y/o male with hypertension, obesity on Ozempic, DM (not currently on medicines), suspected FAMILIA (not yet treated), hx dyslipidemia (normal on most recent OP labs), former smoker who is here for evaluation of SOB and chest discomfort when taking
deep breaths and coughing.� He endorses symptoms that began in January but continued despite treatment of influenza.� He has had recurrent ED visits.� He is clearly describing episodes of orthopnea and PND.� He has been losing weight with Ozempic.�
He did see a mounted police as an outpatient but no testing was done as they were waiting for him to recover from the flu. Patient is currently being treated with antibiotics for suspected pneumonia. Echocardiogram revealed a dilated left ventricle
with an EF of 25% with global hypokinesis and moderate MR.
Acute HFrEF/NICM (EF 25%) with dilated left ventricle and moderate MR (likely functional MR):
-PCWP 27 at 101.6 KG - 04/20/23 wt 98.2
-Continue Toprol-XL 25 mg daily; PVCs noted on telemetry, 4 beat NSVT with K 3.2
-No ACEi/ARB/ARNi/MRA for due to blood pressure limitations----add on discharge if bp allows
-C/o nasea today . etiology unclear - hold Farxiga.
-cough persists
Elevated troponin:
-Secondary to acute nonischemic myocardial injury in the setting of CHF exacerbation and infection.
-Troponin peaked at 2.
Prediabetes:
-Hemoglobin A1c is 6.4%.
-Continue atorvastatin to 20 mg daily.
PNA:
-PNA management per primary team; on antibiotics.
HTN:
-on olmesartan as OP
-Will continue to monitor with medication adjustments above.
DM2:
-not on medical therapy; was on Ozempic for weight loss.
-Hemoglobin A1c pending.
Obesity:
-improving with Ozempic
Suspected sleep apnea:
-Management as per primary team.
Subjective
nausea today
still with cough
04/15/23 [facility]: HEMODYNAMIC DATA
Weight (kg): 101.6
AO (s/d/x mmHg):� 99/78/86
LV (s/x mmHg):� 100/27 (A wave to 42)
PCWP (a/v/x mmHg):� 35
PA (s/d/x mmHg):�
RV (s/x mmHg):�
RA (a/v/x mmHg):�
SVC SvO2 (%): 46.3
PA (right) SvO2 (%): 55.1
SaO2 (%): 85.4
Hbg (g/dL): 14.4
CO (L/min):� 4.44
CI (L/min/m2):� 2.03
TPG (mmHg):� 4
PVR (Bernabe Units):� 0.90
SVR (dynes*seconds*cm^-5):� 1387
AVO2 Diff (Volume %):� 5.93
Physical Exam
Vital Signs/Labs
Vital Signs
Temp Pulse Resp BP Pulse Ox
97.5 F 96 18 111/70 96
04/20/23 06:54 04/20/23 07:00 04/20/23 06:54 04/20/23 06:58 04/20/23 06:54
04/19/23 04/20/23 04/21/23
06:59 06:59 06:59
Actual Weight 98.3 kg 98.2 kg
04/16/23 08:27
04/20/23 04:33
PT 15.0 Sec (11.4-14.6) H 04/15/23 10:09
INR 1.17 04/15/23 10:09
Magnesium 2.0 mg/dl (1.6-2.3) 04/16/23 08:27
Triglycerides 113 mg/dl (10-149) 04/16/23 08:27
LDL Cholesterol, Calc 86 mg/dl 04/16/23 08:27
VLDL Cholesterol, Calc 22 mg/dl (0-30) 04/16/23 08:27
HDL Cholesterol 38 mg/dl 04/16/23 08:27
04/15/23
10:09
Dwc-[id number] Pept 1960
Physical Exam
Constitutional: No acute distress
Cardiovascular: Rhythm & rate is regular
Respiratory: Wheeze Absent, Rhonchi Absent and Other (cough)
GI: Soft and Normal bowel sounds
Neuro/Psych: Alert and Oriented
Data Reviewed
-
Date of Service: April 20, 2023
Medical Decision Making: Reviewed Test Results
Echo: Report Reviewed by me
Medical Tests (PFT, Pathology etc): Report Reviewed by me
Labs: Labs Reviewed by me
[2023-04-20] MEDS: FARXIGA PO (08:41)
[2023-04-20] MEDS: KCL 20 MEQ PO (08:47)
[2023-04-20] MEDS: KCL 270 MEQ IV (08:47)
[2023-04-20] MEDS: LOW STRENGTH ASPIRIN 81 MG PO (08:48)
[2023-04-20] MEDS: LASIX 80 MG IV ×2 (08:48→16:44)
[2023-04-20] MEDS: PEPCID 20 MG PO ×2 (08:48→19:47)
[2023-04-20] MEDS: FLUSH (NSS) 2 FLUSH IV (08:49)
[2023-04-20] MEDS: TOPROL XL 25 MG PO (08:49)
[2023-04-20] MEDS: ROBITUSSIN 200 MG PO ×4 (08:49→22:50)
[2023-04-20] MEDS: TESSALON PERLES 100 MG PO (08:49)
--- NOTE | 2023-04-20 09:23 | PTCARENOTE ---
Received patient this morning resting in bed. Stated he had a good night's sleep last night but continues to have a NPC this morning but improved. Complaining of some nausea, patient not sure if this is from a medication or from his coughing,
Erwin aware. Receiving K+ rider now for K+ 3.2 this morning.
[2023-04-20 09:31] LABS: Magnesium 2.2 mg/dl (1.6-2.3)
[2023-04-20 11:23] VITALS: BP 113/99
[2023-04-20 11:32] LABS: Glucose - Point of Care 111 mg/dl (70-99)
[2023-04-20 11:32] LABS: Glucose - Point of Care 160 mg/dl (70-99)
[2023-04-20 16:44] VITALS: BP 119/98
[2023-04-20] MEDS: FLUSH (NSS) 1 FLUSH IV (16:45)
[2023-04-20] MEDS: LIPITOR 20 MG PO (17:08)
[2023-04-20 17:51] LABS: Glucose - Point of Care 125 mg/dl (70-99)
[2023-04-20 18:47] VITALS: BP 116/90
[2023-04-20 22:33] VITALS: BP 114/86
[2023-04-20 22:36] LABS: Glucose - Point of Care 145 mg/dl (70-99)
--- NOTE | 2023-04-21 02:47 | PTCARENOTE ---
Less coughing tonight. Sleeping at intervals. ST on the monitor in the low 100's.
[2023-04-21 03:57] VITALS: BP 118/99
[2023-04-21 04:01] VITALS: BMI 31.0
[2023-04-21 04:57] LABS: Hematocrit 44.1 % (39.0-52.0); Hemoglobin 15.7 g/dL (13.0-18.0); Mean Corp Hgb Conc. 35.6 g/dL (33.0-37.0); Mean Corpuscular Hgb 30.7 pg (27.0-31.0); Mean Corpuscular Volume 86.1 fL (80.0-94.0); Mean Platelet Volume 10.5 fL (7.4-10.4); Platelet Count 376 10^3/uL (130-400); Red Blood Cell Count 5.12 10^6/uL (4.70-6.10); White Blood Cell Count 10.7 10^3/uL (4.8-10.8)
[2023-04-21 05:39] LABS: Blood Urea Nitrogen 47 mg/dl (9-20); Calcium 10.2 mg/dl (8.4-10.2); Carbon Dioxide 31 mmol/L (22-30); Chloride 85 mmol/L (98-107); Estimated Creatinine Clearance 91 ml/min; Glucose 145 mg/dl (70-99); Magnesium 2.3 mg/dl (1.6-2.3); Potassium 3.3 mmol/L (3.5-5.1); Sodium 130 mmol/L (135-145); eGFR > 60.00
[2023-04-21 07:45] VITALS: BP 108/73
[2023-04-21 07:47] LABS: Glucose - Point of Care 118 mg/dl (70-99)
--- NOTE | 2023-04-21 08:21 | W.PN.HOSP.TC ---
Addendum entered and electronically signed by Ankit Hood MD 04/21/23 15:36:
Creatinine 1.0 abnormal lab only
Original Note:
Today's Communication/Plan
-
Try again to replete potassium with IV infusion to avoid nausea from oral
Continued consideration for addition of spironolactone as BP allows and defer to cardiology
Added Robitussin with codeine
Assessment / Plan
Assessment / Plan
General:�Comfortable and Conversant/with constant dry cough
HEENT:�Anicteric, Moist mucous membranes
Respiratory:�Clear to auscultation, mild rales
Cardiac:�S1/S2 and Regular Rhythm; No Murmur
GI:�Soft, Non Tender and Non Distended
Musculoskeletal:�No Clubbing, No Cyanosis and No Edema
Skin:�Warm and Dry
Neuro:�Awake, Alert, Oriented and Nonfocal/grossly intact
Acute Heart Failure with reduced ejection fraction of 25%/NI CHAIRMAN [employer]
Acute hypoxic respiratory insufficiency secondary to above, now weaned off oxygen
Echo 04/15 with EF 25% with global hypokinesis and moderate MR.
Cardiology following, s/p Cath 04/16 with no CAD, however significantly elevated filling pressures. Continue with IV Lasix, increased to twice daily. Metolazone 04/18 with good response
Replete potassium
cw toprol
Elevated troponin
Likely secondary to acute nonischemic myocardial injury in the setting of CHF
Troponin peaked at 2
Hypokalemia
replete
Intractable cough
-Not responsive to benzonatate thus far
-Not responsive to Robitussin
-Will add Robitussin with codeine
Persisting nausea since arrival
-Ischemic?
-From furosemide? Farxiga?
-Potassium repletion causing nausea?
-Did better yesterday after IV infusion potassium
new onset DM
not on medical therapy
A1c 6.4
ISS,accuchecks
Diabetic education
Hyponatremia
monitor
Obesity secondary to excess calories
Suspected sleep apnea
Recent Pneumonia
procal neg; finished last day abx
recent influenza infection
DVT proph: Lovenox
Code Status: Full Code
Anticipated Discharge: 24 - 48 hours
Subjective/Interval History
-
Date of Service: April 21, 2023
Persisting cough is his most irritating symptom. Less nausea.
Objective Data
-
Labs:
Laboratory Results
04/21/23
03:58
WBC 10.7
Hgb 15.7
Hct 44.1
Plt Count 376
Sodium 130 L
Potassium 3.3 L
Chloride 85 L
Carbon Dioxide 31 H
BUN 47 H
Creatinine 1.1
Glucose 145 H
Calcium 10.2
Vital Signs:
Vital Signs
Temp Pulse Resp BP Pulse Ox
97.6 F 89 18 118/99 97
04/21/23 04:03 04/21/23 07:00 04/21/23 04:03 04/21/23 03:57 04/21/23 04:03
I&O
04/20/23 04/21/23 04/22/23
06:59 06:59 06:59
Intake Total 960 / 960 1830 / 1830
Output Total 1999 / 2124
Balance -1040 / -1040 -295 / -295
Review of Systems
-
History Source: Patient
Constitutional: Reports Fatigue
Respiratory: Reports Cough
Abdomen/GI: Reports Nausea (Improved)
Physical Exam
-
General: Well Developed
HEENT: Normocephalic
Respiratory: Clear to Auscultation
Cardiac: Irregular Rhythm (Frequent ectopic)
GI: Soft, Nontender and Nondistended
Psych: Calm
Data Reviewed
-
Total Time Spent with Patient (in minutes): 56
Labs: Labs Reviewed by me (Potassium remains depressed at 3.3 from 3.2 yesterday BUN up to 47)
--- NOTE | 2023-04-21 08:23 | W.PN.CD ---
Today's Communication / Plan
-
Nausea appears improved. Will continue to hold Farxiga. Unclear if oral potassium may have also contributed
Continue diuretics but monitor renal function. May be nearing target weight daily assessment of transition to oral diuretic
Add spironolactone
Replace potassium. Being directed by hospitalist.
Impression / Plan
-
53 y/o male with hypertension, obesity on Ozempic, DM (not currently on medicines), suspected FAMILIA (not yet treated), hx dyslipidemia (normal on most recent OP labs), former smoker who is here for evaluation of SOB and chest discomfort when taking
deep breaths and coughing.� He endorses symptoms that began in January but continued despite treatment of influenza.� He has had recurrent ED visits.� He is clearly describing episodes of orthopnea and PND.� He has been losing weight with Ozempic.�
He did see a tar leveler as an outpatient but no testing was done as they were waiting for him to recover from the flu. Patient is currently being treated with antibiotics for suspected pneumonia. Echocardiogram revealed a dilated left ventricle
with an EF of 25% with global hypokinesis and moderate MR.
Acute HFrEF/NICM (EF 25%) with dilated left ventricle and moderate MR (likely functional MR):
-PCWP 27 at 101.6 KG - 04/21/23 wt 98.1. May be getting close to target weight. Monitor renal function BUN rising if creatinine increases will need to transition oral diuretic
-Continue Toprol-XL 25 mg daily; PVCs noted on telemetry, 4 beat NSVT with K 3.2
-No ACEi/ARB/ARNi/MRA for due to blood pressure limitations----add on discharge if bp allows
-C/o nasea 04/20 . etiology unclear - hold Farxiga. After nausea has resolved for a significant period of time we could consider retrying Farxiga to see if the nausea was related
-cough persists
-Spironolactone
Hypokalemia. Replacement being directed by primary team.
-Can add spironolactone
Cough. Persists but has improved since admission. Continue treatment of heart failure. Treatment of additional causes of cough as directed by primary team
Nausea. Exact etiology unclear may have been precipitated by oral potassium tablets or by Stephen. Stephen held potassium now given IV but ultimately will need to see if he does okay with oral potassium since he may need it as an outpatient.
Overall nausea has improved continue to monitor
Elevated troponin:
-Secondary to acute nonischemic myocardial injury in the setting of CHF exacerbation and infection.
-Troponin peaked at 2.
Prediabetes:
-Hemoglobin A1c is 6.4%.
-Continue atorvastatin to 20 mg daily.
PNA:
-PNA management per primary team; on antibiotics.
HTN:
-on olmesartan as OP. Currently on hold.
-Will continue to monitor with medication adjustments above.
DM2:
-not on medical therapy; was on Ozempic for weight loss.
-Hemoglobin A1c pending.
Obesity:
-improving with Ozempic
Suspected sleep apnea:
-Management as per primary team.
Subjective
nausea today
still with cough
04/15/23 [facility]: HEMODYNAMIC DATA
Weight (kg): 101.6
AO (s/d/x mmHg):� 99/78/86
LV (s/x mmHg):� 100/27 (A wave to 42)
PCWP (a/v/x mmHg):� 35/33/27
PA (s/d/x mmHg):� 42//
RV (s/x mmHg):� 42/9
RA (a/v/x mmHg):� 15
SVC SvO2 (%): 46.3
PA (right) SvO2 (%): 55.1
SaO2 (%): 85.4
Hbg (g/dL): 14.4
CO (L/min):� 4.44
CI (L/min/m2):� 2.03
TPG (mmHg):� 4
PVR (Bernabe Units):� 0.90
SVR (dynes*seconds*cm^-5):� 1387
AVO2 Diff (Volume %):� 5.93
Physical Exam
Vital Signs/Labs
Vital Signs
Temp Pulse Resp BP Pulse Ox
97.6 F 89 18 118/99 97
04/21/23 04:03 04/21/23 07:00 04/21/23 04:03 04/21/23 03:57 04/21/23 04:03
04/20/23 04/21/23 04/22/23
06:59 06:59 06:59
Actual Weight 98.2 kg 98.1 kg
04/21/23 03:58
04/21/23 03:58
PT 15.0 Sec (11.4-14.6) H 04/15/23 10:09
INR 1.17 04/15/23 10:09
Magnesium 2.3 mg/dl (1.6-2.3) 04/21/23 03:58
Triglycerides 113 mg/dl (10-149) 04/16/23 08:27
LDL Cholesterol, Calc 86 mg/dl 04/16/23 08:27
VLDL Cholesterol, Calc 22 mg/dl (0-30) 04/16/23 08:27
HDL Cholesterol 38 mg/dl 04/16/23 08:27
04/15/23
10:09
Emt-H-Jhxkjsgugzo Pept 1960
Physical Exam
Constitutional: No acute distress
Cardiovascular: Rhythm & rate is regular
Respiratory: Respiratory effort normal
GI: Soft and Non tender
Neuro/Psych: Alert and Oriented
Other: Skin
Data Reviewed
-
Date of Service: April 21, 2023
Medical Decision Making: Reviewed Test Results
X-Ray/CT/US/MRI/NUC/PET: Report Reviewed by me
Labs: Labs Reviewed by me and Labs Ordered by me
[2023-04-21] MEDS: LASIX 80 MG IV ×2 (08:32→16:22)
[2023-04-21] MEDS: LOW STRENGTH ASPIRIN 81 MG PO (08:34)
[2023-04-21] MEDS: FLUSH (NSS) 1 FLUSH IV (08:34)
[2023-04-21] MEDS: TOPROL XL 25 MG PO (08:34)
[2023-04-21] MEDS: PEPCID 20 MG PO ×2 (09:25→19:49)
[2023-04-21] MEDS: PROTONIX 20 MG PO (09:25)
[2023-04-21] MEDS: ROBITUSSIN AC 10 ML PO ×2 (09:26→22:38)
[2023-04-21] MEDS: TESSALON PERLES 200 MG PO ×2 (09:26→22:38)
[2023-04-21] MEDS: ROBITUSSIN PO (09:29)
[2023-04-21] MEDS: KCL 160 MEQ IV (10:27)
[2023-04-21 11:01] VITALS: BP 101/67
--- NOTE | 2023-04-21 11:05 | CM ---
dc plans remain home when medically stable.
[2023-04-21 12:16] LABS: Glucose - Point of Care 104 mg/dl (70-99)
--- NOTE | 2023-04-21 13:37 | PN.CDI ---
CDI
- -
CDI:
Physician Documentation Request
Admit Date: 04/15/23 13:16
Dear Doctor Erwin,
Please review the following and provide your response in the progress notes.
Clinical Indicators:
Pt admitted with Acute systolic CHF on IV Lasix /s/P cardiac cath
Renal functions are as below
04/15/23 04/16/23 04/18/23
10:09 08:27 05:00
Creatinine 1.0 0.8 0.9
04/19/23 04/21/23
09:02 03:58
Creatinine 1.1 1.1
Clarify which of the following accurately represents the patient's renal status:
RANDEE
Abnormal lab value only
Other
Criteria for RANDEE*
1 Increase in serum creatinine by > or = to 0.3 mg/dL (> or = to 26.5 micromol/L) within 48 hours, OR
2 Increase in serum creatinine to > or = to 1.5 times baseline, which is known or presumed to have occurred within 7 days, OR
3 Urine volume < 0.5 nL/kg/hour for six hours
Use of terms such as suspected, likely, concern for, or probable (associated with a specific diagnosis that is being evaluated, monitored, or treated as if it exists) are acceptable and can be coded in the inpatient setting, when documented at the
time of discharge.
Thank you,
Dian Emanuel RN
CDI Specialist
[place] [facility]
Please use your independent medical judgment in providing your response.
*Source: Kidney Disease: Improving Global Outcomes (KDIGO) 2012
[2023-04-21 15:23] VITALS: BP 109/92
[2023-04-21] MEDS: LIPITOR 20 MG PO (17:16)
[2023-04-21 17:52] LABS: Glucose - Point of Care 145 mg/dl (70-99)
[2023-04-21 18:47] VITALS: BP 106/76
--- NOTE | 2023-04-21 21:19 | PTCARENOTE ---
Received pt at handoff. AOX3. Assessment noted as documented. Tele- ST w/ PVCs. HR 100s. Pt w/ occ. non-prod dry cough. Pt on RA sating at 98%. Ambulatory in room; steady gait. Currently in bed; call maria esther w/in reach.
[2023-04-21 21:46] LABS: Glucose - Point of Care 123 mg/dl (70-99)
[2023-04-21 22:37] VITALS: BP 121/90
[2023-04-22] VITALS (7 sets, daily range): BP systolic 105–152; BP diastolic 74–139; BMI 31.2
--- NOTE | 2023-04-22 04:25 | DOWNTIME ---
There was a [employer] Client Sales Representative [employer] Downtime on 04/22/2023 from 0111 to 04/22/2023 at 0405. Downtime documentation of patient's care, including medication administrations, has been reconciled in the electronic record per guidelines. Refer to the
patient's paper chart under the miscellaneous tab to see printed paper medication records and downtime forms.
[2023-04-22 06:32] LABS: Blood Urea Nitrogen 36 mg/dl (9-20); Calcium 9.4 mg/dl (8.4-10.2); Carbon Dioxide 30 mmol/L (22-30); Chloride 89 mmol/L (98-107); Estimated Creatinine Clearance 101 ml/min; Glucose 128 mg/dl (70-99); Sodium 129 mmol/L (135-145); eGFR > 60.00
--- NOTE | 2023-04-22 06:46 | PTCARENOTE ---
K 3.0. [employer] ASH CONVEYOR OPERATOR notified and orders placed. See MAR.
--- NOTE | 2023-04-22 08:00 | W.PN.HOSP.TC ---
Today's Communication/Plan
-
Continued issues with hypokalemia
No longer with nausea so doubt potassium supplementation contributing to it we will become more aggressive with potassium supplementation at this point continue spironolactone
Cough remains refractory to medications we have tried/consideration would be toward placing on steroid
Will get nephrology to address continued hypokalemia hyponatremia
Assessment / Plan
Assessment / Plan
General:�Comfortable and Conversant/with constant dry cough
HEENT:�Anicteric, Moist mucous membranes
Respiratory:�Clear to auscultation, mild rales
Cardiac:�S1/S2 and Regular Rhythm; No Murmur
GI:�Soft, Non Tender and Non Distended
Musculoskeletal:�No Clubbing, No Cyanosis and No Edema
Skin:�Warm and Dry
Neuro:�Awake, Alert, Oriented and Nonfocal/grossly intact
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
Acute hypoxic respiratory insufficiency secondary to above, now weaned off oxygen
Echo 04/15 with EF 25% with global hypokinesis and moderate MR.
Cardiology following, s/p Cath 04/16 with no CAD, however significantly elevated filling pressures. Continue with IV Lasix, increased to twice daily. Metolazone 04/18 with good response
Replete potassium
cw toprol
Elevated troponin
Likely secondary to acute nonischemic myocardial injury in the setting of CHF
Troponin peaked at 2
Hypokalemia
replete
Intractable cough
-COVID-negative at time of admission
-Not responsive to benzonatate thus far
-Not responsive to Robitussin
-Will add Robitussin with codeine
Nausea now improved
-From furosemide? Farxiga?
-Did better yesterday after IV infusion potassium
new onset DM
not on medical therapy
A1c 6.4
ISS,accuchecks
Diabetic education
-Will probably discharge on metformin and resume Ozempic at discharge
Hyponatremia
monitor
-Will get nephrology input to address continued hypokalemia and hyponatremia
Obesity secondary to excess calories
Suspected sleep apnea
Recent Pneumonia
procal neg; finished last day abx
recent influenza infection
DVT proph: Lovenox
Code Status: Full Code
Anticipated Discharge: 24 - 48 hours
Subjective/Interval History
-
Date of Service: April 22, 2023
Main complaint continues to be cough but no further nausea does admit to shortness of breath only when he takes a deep breath
Objective Data
-
Labs:
Laboratory Results
04/22/23
05:21
Sodium 129 L
Potassium 3.0 L
Chloride 89 L
Carbon Dioxide 30
BUN 36 H
Creatinine 1.0
Glucose 128 H
Calcium 9.4
Vital Signs:
Vital Signs
Temp Pulse Resp BP Pulse Ox
98.3 F 87 20 120/74 93
04/22/23 07:28 04/22/23 05:11 04/22/23 07:28 04/22/23 05:11 04/22/23 07:28
I&O
04/21/23 04/22/23 04/23/23
06:59 06:59 06:59
Intake Total 1830 / 1830 960 / 960
Output Total 2124 / 2124 1000 / 1000
Balance -295 / -295 -40 / -40
Review of Systems
-
History Source: Patient
All other systems: Not reviewed unless documented
EENT: Reports No Symptoms Reported
Respiratory: Reports Cough (Nonproductive dry feels like a tickle in his throat and trachea) and Trouble Breathing
Abdomen/GI: Reports No Symptoms
Musculoskeletal: Reports No Symptoms and Joint Pain
Endocrine: Reports No Symptoms
Allergy / Immunology: Reports No Symptoms
Physical Exam
-
General: Well Developed
HEENT: Normocephalic
Respiratory: Clear to Auscultation
Cardiac: Regular Rhythm
Neuro: Awake
Psych: Calm
Data Reviewed
-
Total Time Spent with Patient (in minutes): 45
Labs: Labs Reviewed by me (Potassium now down to 3.0 sodium down to 129/BUN up to 36/glycohemoglobin 6.4 blood sugar 123 this morning)
[2023-04-22] MEDS: KCL 270 MEQ IV (08:09)
--- NOTE | 2023-04-22 08:13 | W.PN.CD ---
Today's Communication / Plan
-
start back farxiga
transition to po diuretic---torsemide 40mg bid
start spironolactone
treatement of cough per medicine
d/c planning
Impression / Plan
-
53 y/o male with hypertension, obesity on Ozempic, DM (not currently on medicines), suspected FAMILIA (not yet treated), hx dyslipidemia (normal on most recent OP labs), former smoker who is here for evaluation of SOB and chest discomfort when taking
deep breaths and coughing.� He endorses symptoms that began in January but continued despite treatment of influenza.� He has had recurrent ED visits.� He is clearly describing episodes of orthopnea and PND.� He has been losing weight with Ozempic.�
He did see a merchandising intern as an outpatient but no testing was done as they were waiting for him to recover from the flu. Patient is currently being treated with antibiotics for suspected pneumonia. Echocardiogram revealed a dilated left ventricle
with an EF of 25% with global hypokinesis and moderate MR.
Acute HFrEF/NICM (EF 25%) with dilated left ventricle and moderate MR (likely functional MR):
-PCWP 27 at 101.6 KG - 04/21/23 wt 98.1. May be getting close to target weight. Monitor renal function BUN rising if creatinine increases will need to transition oral diuretic
-Continue Toprol-XL 25 mg daily; PVCs noted on telemetry
-start spironolactone given persistent hypokalemia and Farxiga
-No ACEi/ARB/ARNi for due to blood pressure limitations----add on discharge if bp allows
-cough persists but he is 'euvolemic' maybe post reactive
Hypokalemia. Replacement being directed by primary team.
-Adding spironolactone
Cough. Persists but has improved since admission but still a big complaint. Continue treatment of heart failure.
-Treatment of additional causes of cough as directed by primary team.
Nausea. Exact etiology unclear may have been precipitated by oral potassium tablets or by Farxiga. Retrialing farxiga.
Elevated troponin:
-Secondary to acute nonischemic myocardial injury in the setting of CHF exacerbation and infection.
-Troponin peaked at 2.
Prediabetes:
-Hemoglobin A1c is 6.4%.
-Continue atorvastatin to 20 mg daily.
PNA:
-PNA management per primary team; on antibiotics.
HTN:
-on olmesartan as OP. Currently on hold.
-Will continue to monitor with medication adjustments above.
DM2:
-not on medical therapy; was on Ozempic for weight loss.
-Hemoglobin A1c pending.
Obesity:
-improving with Ozempic
Suspected sleep apnea:
-Management as per primary team.
Subjective
nausea resolved
still with cough
04/15/23 [facility]: HEMODYNAMIC DATA
Weight (kg): 101.6
AO (s/d/x mmHg):� 99/78/86
LV (s/x mmHg):� 100/27 (A wave to 42)
PCWP (a/v/x mmHg):� 35/33/27
PA (s/d/x mmHg):� 42//31
RV (s/x mmHg):� 42/9
RA (a/v/x mmHg):� 15/9
SVC SvO2 (%): 46.3
PA (right) SvO2 (%): 55.1
SaO2 (%): 85.4
Hbg (g/dL): 14.4
CO (L/min):� 4.44
CI (L/min/m2):� 2.03
TPG (mmHg):� 4
PVR (Bernabe Units):� 0.90
SVR (dynes*seconds*cm^-5):� 1387
AVO2 Diff (Volume %):� 5.93
Physical Exam
Vital Signs/Labs
Vital Signs
Temp Pulse Resp BP Pulse Ox
98.3 F 87 20 120/74 93
04/22/23 07:28 04/22/23 05:11 04/22/23 07:28 04/22/23 05:11 04/22/23 07:28
04/21/23 04/22/23 04/23/23
06:59 06:59 06:59
Actual Weight 98.1 kg 98.5 kg
04/21/23 03:58
04/22/23 05:21
PT 15.0 Sec (11.4-14.6) H 04/15/23 10:09
INR 1.17 04/15/23 10:09
Magnesium 2.3 mg/dl (1.6-2.3) 04/21/23 03:58
Triglycerides 113 mg/dl (10-149) 04/16/23 08:27
LDL Cholesterol, Calc 86 mg/dl 04/16/23 08:27
VLDL Cholesterol, Calc 22 mg/dl (0-30) 04/16/23 08:27
HDL Cholesterol 38 mg/dl 04/16/23 08:27
04/15/23
10:09
Cvb-S-Swtgvccwjoi Pept 1960
Physical Exam
Constitutional: No acute distress
Cardiovascular: Rhythm & rate is regular, Pedal edema is absent, JVD pressure is normal, Systolic murmur absent and Diastolic murmur absent
Respiratory: Respiratory effort normal, Lungs clear to auscul., Wheeze Absent, Crackles Absent and Rhonchi Absent
GI: Soft
Neuro/Psych: AO x 3
Data Reviewed
-
Date of Service: April 22, 2023
EKG: Other (tele nsr with pvc)
[2023-04-22] MEDS: LASIX 80 MG IV (08:32)
[2023-04-22] MEDS: TESSALON PERLES 200 MG PO (08:35)
[2023-04-22] MEDS: LOW STRENGTH ASPIRIN 81 MG PO (08:35)
[2023-04-22] MEDS: TOPROL XL 25 MG PO (08:36)
[2023-04-22] MEDS: ROBITUSSIN AC 10 ML PO (08:37)
--- NOTE | 2023-04-22 08:47 | PTCARENOTE ---
K this am 3.0 MD aware ordered IV potassium. IV potassium infusing, patient has too much pain at IV site therefore IV drip stopped and notified Dr. Hood.
[2023-04-22] MEDS: PEPCID 20 MG PO ×2 (08:56→20:20)
[2023-04-22] MEDS: PROTONIX 20 MG PO (08:56)
[2023-04-22] MEDS: FARXIGA 10 MG PO (08:56)
[2023-04-22] MEDS: KLOR-CON 20 MEQ PO (08:56)
--- NOTE | 2023-04-22 09:36 | PTCARENOTE ---
Robitussin and Tessalon pearls given to patient for frequent, dry cough. patient stated I have sore throat due to coughing.
[2023-04-22 13:04] LABS: Glucose - Point of Care 117 mg/dl (70-99)
--- NOTE | 2023-04-22 15:44 | CM ---
CM following for DC planning needs.
Reviewed initial assessment. Pt. resides w/ spouse in a private home. Functionally, patient is indep. at baseline w/ ADLs, mobility without the use of any assisted device.
Anticipated DC plan is for home without needs.
CM to follow.
--- NOTE | 2023-04-22 15:49 | W.CON.NEPH ---
Consultation
-
Date/Time Consultation Requested: 04/22 8:08AM
Date/Time Consultation Performed: 04/22 3:49PM
Requesting Provider: Dr. Hood
Performing Provider: Nga Lucas
Reason for Consultation: hypokalemia
Medical History
-
Chief Complaint: hypokalemia
History of Present Illness:
Mr. Yepez is a 53YOM with PMH of HTN and GERD who presents to the hospital on 04/15 for SOB and cough and was found to have ADHF with EF 25%. Patient states his symptoms started in January when he had the flu, but they have persisted. He has
had recurrent ED visits for this. He states that his orthopnea and PND have improved significantly. Patient is also being treated for a PNA at this time. Cardiology has been following the patient and actively diuresing. Patient endorses weights
decreasing, states he feels well although does have a persistent cough.
He has been placed on spironolactone for low K, despite aggressive repletion. Nephrology being consulted for hypokalemia and hyponatremia.
Past Medical History
Past Medical History: GERD and HTN
Past Surgical History: Orthopedic
Social History
Tobacco: Former Smoker
Alcohol: Occasional
Drug: None
Personal:
Living: With Family
Family History
Family History: Not Pertinent
Allergies / Home Medications
Allergy/AdvReac Type Severity Reaction Status Date / Time
loperamide [From Imodium A-D] Allergy Swelling Verified 04/15/23 09:52
pollen extracts Allergy SEASONAL-NASAL Verified 04/15/23 16:03
SYMPTOMS
Medication Instructions Recorded Confirmed Type
albuterol sulfate 90 mcg/actuation 2 puff inhalation R QIDPRN PRN 04/15/23 04/15/23 History
aerosol inhaler shortness of breath or wheezing
cefpodoxime 200 mg tablet 200 mg PO Q12H Infection 04/15/23 04/15/23 History
dextromethorphan polistirex 30 5 ml PO QIDPRN PRN COUGH 04/15/23 04/15/23 History
mg/5 mL oral susp ext.release 12hr
(Delsym 12 hour)
doxycycline hyclate 100 mg capsule 100 mg PO BID Infection 04/15/23 04/15/23 History
ipratropium 0.5 mg-albuterol 3 mg 3 ml inhalation R Q4HPRN PRN SOB 04/15/23 04/15/23 History
(2.5 mg base)/3 mL nebulization
soln
hstyzlgilyefp-RV-nujzlydwfbcza-guaif 15 ml PO BIDPRN PRN COUGH AND MILD 04/15/23 04/15/23 History
5 mg-10 mg-325 mg-200mg/15 mL liq PAIN
(Tylenol Cold and Flu Severe)
semaglutide 0.25 mg or 0.5 mg (2 0.25 mg SC MO Diabetes 04/15/23 04/15/23 History
mg/3 mL) subcutaneous pen injector
(Ozempic)
Review of Systems
-
History Source: Patient
Constitutional: Weight Gain
EENT: No Symptoms
Respiratory: Cough
Cardiac: No Symptoms
Abdomen/GI: No Symptoms
: No Symptoms
Musculoskeletal: Edema
Skin: No Symptoms
Neurological: No Symptoms
Endocrine: No Symptoms
Hematologic/Lymphatic: No Symptoms
Physical Exam
Vital Signs
Vital Signs
Temp Pulse Resp BP Pulse Ox
97.5 F 99 20 117/93 96
04/22/23 15:42 04/22/23 15:00 04/22/23 15:42 04/22/23 11:52 04/22/23 15:42
Lab Results
WBC 10.7 10^3/uL (4.8-10.8) 04/21/23 03:58
RBC 5.12 10^6/uL (4.70-6.10) 04/21/23 03:58
Hgb 15.7 g/dL (13.0-18.0) 04/21/23 03:58
Hct 44.1 % (39.0-52.0) 04/21/23 03:58
Plt Count 376 10^3/uL (130-400) 04/21/23 03:58
Sodium 129 mmol/L (135-145) L 04/22/23 05:21
Potassium 3.0 mmol/L (3.5-5.1) L 04/22/23 05:21
Chloride 89 mmol/L (98-107) L 04/22/23 05:21
Carbon Dioxide 30 mmol/L (22-30) 04/22/23 05:21
BUN 36 mg/dl (9-20) H 04/22/23 05:21
Creatinine 1.0 mg/dL (0.7-1.3) 04/22/23 05:21
eGFR > 60.00 04/22/23 05:21
Glucose 128 mg/dl (70-99) H 04/22/23 05:21
Calcium 9.4 mg/dl (8.4-10.2) 04/22/23 05:21
Wkc-W-Dzzjaaixoxo Pept 1960 pg/ml 04/15/23 10:09
Albumin 3.9 g/dl (3.5-5.0) 04/15/23 10:09
Physical Exam
General: AOx3
HEENT: PERRL, EOMI, Anicteric, Conjunctivae Clear and Ear/Nose Intact
Respiratory: Crackels
Cardiac: S1/S2 and Regular Rate/Rhythm
Breast: N/A
Abdomen: Soft, Nontender and Nondistended
Rectal: Deferred by Provider
Genito-urinary: Clear Urine
Musculoskeletal: No Edema
Skin: No Rash
Neuro: Nonfocal/Grossly Intact
Psych: Mood/afflect pleasant
Assessment/Plan
-
Assessment:
ADHF (EF 25%)
hypokalemia
PNA
HTN
Obesity
C/f FAMILIA
Plan:
hypokalemia
likely from diuresis
K prior to diuresis at ~4, with diuresis down to 3
agree with aggressive repletion
agree with spironolactone, if patient does not improve with this, could consider amiloride but for GDMT, would prefer lino
hard to workup in the setting of ongoing diuresis
hyponatremia
SIADH from recent PNA
obtain urine Na and urine osm
TSH wnl
Data Reviewed
-
Radiology: Image Personally Visualized and interpreted
Labs: Labs Reviewed by me and Discussed with Patient
Old Records: Reviewed
[2023-04-22] MEDS: LIPITOR 20 MG PO (17:28)
[2023-04-22 17:54] LABS: Glucose - Point of Care 117 mg/dl (70-99)
[2023-04-22] MEDS: KLOR-CON 40 MEQ PO (20:20)
[2023-04-22] MEDS: DEMADEX 40 MG PO (20:20)
[2023-04-22 21:52] LABS: Glucose - Point of Care 149 mg/dl (70-99)
--- NOTE | 2023-04-22 23:36 | PTCARENOTE ---
assumed care of patient at the change of shift. AAOx3. independent in the room. denies any cp. states feeling short of breath with ambulation at times, improved per patient. lungs clear throughout. dry cough at times. 96% on RA. HR SR-ST with PVCs.
bp stable. PO demadex given. educated patient to urinate in the BSU. yellow urine. reviewed plan of care with patient and verbalized understanding. call mayo within reach. calls appropriately.
[2023-04-23 03:09] VITALS: BP 115/77
[2023-04-23] MEDS: ROBITUSSIN AC 10 ML PO ×2 (03:11→22:50)
[2023-04-23] MEDS: TESSALON PERLES 200 MG PO (03:11)
--- NOTE | 2023-04-23 03:31 | PTCARENOTE ---
patient woke up this morning with a harsh, dry cough. PRN Tessalon pearls and Robitussin given, see mar.
[2023-04-23 03:52] LABS: Blood Urea Nitrogen 34 mg/dl (9-20); Calcium 9.8 mg/dl (8.4-10.2); Carbon Dioxide 30 mmol/L (22-30); Chloride 90 mmol/L (98-107); Estimated Creatinine Clearance 91 ml/min; Glucose 141 mg/dl (70-99); Potassium 2.9 mmol/L (3.5-5.1); Sodium 131 mmol/L (135-145); eGFR > 60.00
[2023-04-23 04:19] LABS: Urine Potassium 36.2 mmol/L (30-90); Urine Sodium 58 mmol/L (30-90)
--- NOTE | 2023-04-23 04:27 | PTCARENOTE ---
K 2.9 this morning. updated [facility] hospitalist GROUND SURVEILLANCE SYSTEMS OPERATOR. 40 meq Potassium Chloride powder ordered stat, see apr.
--- NOTE | 2023-04-23 04:27 | W.PN.UPDATE ---
Update Note
Progress Note Update
K 2.9, will replete with Potassium chloride powder 40mEq PO now, Patient refusing IV or PO tablet.
[2023-04-23] MEDS: KLOR-CON 40 MEQ PO ×3 (04:31→20:17)
[2023-04-23 04:33] LABS: Osmolality Urine 294 mOsm/kg (300-900)
--- NOTE | 2023-04-23 07:41 | W.PN.HOSP.TC ---
Today's Communication/Plan
-
Continue to try and replete potassium otherwise stable for discharge but would like to get potassium to at least 3.3 and a stable potassium dosing and will need follow-up BMP in 1 week
Assessment / Plan
Assessment / Plan
General:�Comfortable and Conversant/with constant dry cough
HEENT:�Anicteric, Moist mucous membranes
Respiratory:�Clear to auscultation, mild rales
Cardiac:�S1/S2 and Regular Rhythm; No Murmur
GI:�Soft, Non Tender and Non Distended
Musculoskeletal:�No Clubbing, No Cyanosis and No Edema
Skin:�Warm and Dry
Neuro:�Awake, Alert, Oriented and Nonfocal/grossly intact
Acute Heart Failure with reduced ejection fraction of 25%/NI SERVICE MEMBER
Acute hypoxic respiratory insufficiency secondary to above, now weaned off oxygen
Echo 04/15 with EF 25% with global hypokinesis and moderate MR.
Cardiology following, s/p Cath 04/16 with no CAD, however significantly elevated filling pressures. Continue with IV Lasix, increased to twice daily. Metolazone 04/18 with good response
Replete potassium which has been resistant to repletion
-Remains on torsemide 40 mg twice daily
cw toprol
Elevated troponin
Likely secondary to acute nonischemic myocardial injury in the setting of CHF
Troponin peaked at 2
Hypokalemia
-Now on 25 mg of spironolactone day #2
-Placed on potassium powder 40 mill colons twice daily
Intractable cough/improved
-COVID-negative at time of admission
-Not responsive to benzonatate thus far
-Not responsive to Robitussin
-Will add Robitussin with codeine/has significantly improved
Nausea now improved
-From furosemide? Farxiga?
-Did better yesterday after IV infusion potassium
new onset DM
not on medical therapy
A1c 6.4
ISS,accuchecks
Diabetic education
-Will probably discharge on metformin and resume Ozempic at discharge
Hyponatremia
monitor
-Will get nephrology input to address continued hypokalemia and hyponatremia
Obesity secondary to excess calories
Suspected sleep apnea
Recent Pneumonia
procal neg; finished last day abx
recent influenza infection
DVT proph: Lovenox
Code Status: Full Code
Anticipated Discharge: 24 - 48 hours
Subjective/Interval History
-
Date of Service: April 23, 2023
Cough seems to be significantly better and actually slept through the night. Was unable to tolerate IV potassium infusion yesterday and will only take the powder form of potassium.
Objective Data
-
Labs:
Laboratory Results
04/23/23
03:14
Sodium 131 L
Potassium 2.9 L
Chloride 90 L
Carbon Dioxide 30
BUN 34 H
Creatinine 1.1
Glucose 141 H
Calcium 9.8
Vital Signs:
Vital Signs
Temp Pulse Resp BP Pulse Ox
97.5 F 96 20 115/77 93
04/23/23 03:24 04/23/23 03:09 04/23/23 03:24 04/23/23 03:09 04/23/23 03:24
I&O
04/22/23 04/23/23 04/24/23
06:59 06:59 06:59
Intake Total 960 / 960 400 / 400
Output Total 1000 / 1000 4350 / 4350
Balance -40 / -40 -3950 / -3950
Review of Systems
-
History Source: Patient
Constitutional: Reports No Symptoms
EENT: Reports No Symptoms Reported
Respiratory: Reports No Symptoms
Physical Exam
-
General: Well Developed
HEENT: Normocephalic
Respiratory: Clear to Auscultation
Cardiac: Regular Rhythm
GI: Soft, Nontender and Nondistended
Skin: IV Access / Catheter Site
Neuro: Awake
Psych: Calm
Data Reviewed
-
Total Time Spent with Patient (in minutes): 56
Labs: Labs Reviewed by me (Sodium up to 131 with potassium remaining low at 2.9 chloride 90 BUN 34 creatinine 1.1/glucose was 149)
[2023-04-23 07:48] VITALS: BP 117/94
[2023-04-23 07:52] VITALS: BMI 30.9
[2023-04-23 07:56] LABS: Glucose - Point of Care 134 mg/dl (70-99)
[2023-04-23] MEDS: ALDACTONE 25 MG PO (09:25)
[2023-04-23] MEDS: FARXIGA 10 MG PO (09:26)
[2023-04-23] MEDS: LOW STRENGTH ASPIRIN 81 MG PO (09:27)
[2023-04-23] MEDS: PEPCID 20 MG PO ×2 (09:27→20:17)
[2023-04-23] MEDS: TOPROL XL 25 MG PO (09:27)
[2023-04-23] MEDS: PROTONIX 20 MG PO (09:27)
[2023-04-23] MEDS: DEMADEX PO ×2 (09:28→09:41)
[2023-04-23] MEDS: FLUSH (NSS) 1 FLUSH IV (09:29)
--- NOTE | 2023-04-23 10:01 | PTCARENOTE ---
Received patient this morning ambulating in his room. Denies any sob, still with occasional NPC but slept well last night. Seen by the hospitalist and cardiology. Repleting K+, will recheck BMP at 1700, demadex to be held today as per Dr. Burns.
--- NOTE | 2023-04-23 11:52 | CM ---
CM following for DC planning needs.
Met w/ patient at bedside. Patient is hopeful for DC soon and has no anticipated needs.
Plan is for home, no needs.
[2023-04-23 12:03] VITALS: BP 104/72
[2023-04-23 12:25] LABS: Glucose - Point of Care 103 mg/dl (70-99)
--- NOTE | 2023-04-23 14:59 | W.PN.NEPH.PH ---
Today's Communication / Plan
-
- replete K PRN
Assessment/Plan
-
Assessment:
ADHF (EF 25%)
hypokalemia
PNA
HTN
Obesity
C/f FAMILIA
Plan:
hypokalemia
likely from diuresis
K prior to diuresis at ~4, with diuresis down to 3
agree with aggressive repletion
if discharging with diuretic, would send home with K
encouraged K in diet at home
agree with spironolactone, if patient does not improve with this, could consider amiloride but for GDMT, would prefer lino
hard to workup in the setting of ongoing diuresis
hyponatremia
improved to 131
SIADH from recent PNA
consistent with SIADH (but hard to know accuracy of labs in the setting of diuresis)
TSH wnl
-
-
Date of Service: April 23, 2023
CC / HPI / ROS
-
Chief Complaint:
hypoK
History of Present Illness:
hypoNa --> improved
hypoK --> improved with repletion
Review of Systems:
feeling well
planned for D/c
Labs
-
Labs:
WBC 10.7 10^3/uL (4.8-10.8) 04/21/23 03:58
RBC 5.12 10^6/uL (4.70-6.10) 04/21/23 03:58
Hgb 15.7 g/dL (13.0-18.0) 04/21/23 03:58
Hct 44.1 % (39.0-52.0) 04/21/23 03:58
Plt Count 376 10^3/uL (130-400) 04/21/23 03:58
eGFR > 60.00 04/23/23 03:14
Mmj-R-Djlhavzvtcl Pept 1960 pg/ml 04/15/23 10:09
Albumin 3.9 g/dl (3.5-5.0) 04/15/23 10:09
Physical Exam
-
Vital Signs:
Vital Signs
Temp Pulse Resp BP Pulse Ox
97.8 F 88 18 104/72 95
04/23/23 12:03 04/23/23 12:03 04/23/23 12:03 04/23/23 12:03 04/23/23 12:03
Cardiovascular:: Regular rate and rhythm
Respiratory:: Bilateral: CTA
Lung Excursion:: Normal
Abdomen:: Nontender and Soft
Bowel Sounds:: Normal
Extremity Edema:: +1: Bilateral:
Martin Catheter: No
[2023-04-23 16:07] VITALS: BP 121/87
[2023-04-23 16:47] LABS: Blood Urea Nitrogen 37 mg/dl (9-20); Carbon Dioxide 28 mmol/L (22-30); Chloride 89 mmol/L (98-107); Estimated Creatinine Clearance 83 ml/min; Glucose 138 mg/dl (70-99); Potassium 3.3 mmol/L (3.5-5.1); Sodium 130 mmol/L (135-145); eGFR > 60.00
[2023-04-23] MEDS: LIPITOR 20 MG PO (17:45)
[2023-04-23 19:11] VITALS: BP 121/92
[2023-04-23 22:21] LABS: Glucose - Point of Care 121 mg/dl (70-99)
[2023-04-23 22:53] VITALS: BP 122/98
[2023-04-24 04:53] VITALS: BP 88/57
[2023-04-24 04:56] VITALS: BP 105/76
[2023-04-24 05:01] VITALS: BMI 31.2
[2023-04-24 05:37] LABS: Blood Urea Nitrogen 28 mg/dl (9-20); Calcium 9.5 mg/dl (8.4-10.2); Carbon Dioxide 28 mmol/L (22-30); Chloride 95 mmol/L (98-107); Estimated Creatinine Clearance 101 ml/min; Glucose 122 mg/dl (70-99); Potassium 3.4 mmol/L (3.5-5.1); Sodium 131 mmol/L (135-145); eGFR > 60.00
--- NOTE | 2023-04-24 06:13 | PTCARENOTE ---
Patient slept well, labs collected, weight obtained, call mayo in reach
[2023-04-24 07:12] VITALS: BP 116/78
[2023-04-24 07:15] LABS: Glucose - Point of Care 134 mg/dl (70-99)
--- NOTE | 2023-04-24 08:07 | W.PN.CD ---
Today's Communication / Plan
-
Adding olmesartan in the evening (was home med)
improved clnicially
recommend repeat K on Thursday (will given)
Impression / Plan
-
53 y/o male with hypertension, obesity on Ozempic, DM (not currently on medicines), suspected FAMILIA (not yet treated), hx dyslipidemia (normal on most recent OP labs), former smoker who is here for evaluation of SOB and chest discomfort when taking
deep breaths and coughing.� He endorses symptoms that began in January but continued despite treatment of influenza.� He has had recurrent ED visits.� He is clearly describing episodes of orthopnea and PND.� He has been losing weight with Ozempic.�
He did see a social insurance adviser as an outpatient but no testing was done as they were waiting for him to recover from the flu. Patient is currently being treated with antibiotics for suspected pneumonia. Echocardiogram revealed a dilated left ventricle
with an EF of 25% with global hypokinesis and moderate MR.
Acute HFrEF/NICM (EF 25%) with dilated left ventricle and moderate MR (likely functional MR):
-PCWP 27 at 101.6 KG - 04/21/23 wt 98.1.
- Continue Torsemide 20mg daily. Spironolactone also recently added. Will add back his olmesartan in the evening (as outpatient will transition to entresto if bp room)
-Continue Toprol-XL 25 mg daily; PVCs noted on telemetr
Hypokalemia. Replacement being directed by primary team.
-Spironolactone added. Patient changed from IV Lasix and now on oral torsemide. Also being given potassium supplementation.
-Adding ARB back
-discussed K rich diet
-would check K early next week (thursday to ensure stable)
Cough. Improved with robitussin
Nausea. Exact etiology unclear may have been precipitated by oral potassium tablets or by Farxiga. Retrialing farxiga.
-no complaint today
Elevated troponin:
-Secondary to acute nonischemic myocardial injury in the setting of CHF exacerbation and infection.
-Troponin peaked at 2.
Prediabetes:
-Hemoglobin A1c is 6.4%.
-Continue atorvastatin to 20 mg daily.
PNA:
-PNA management per primary team; on antibiotics.
HTN:
-on olmesartan as OP. Currently on hold.
-Will continue to monitor with medication adjustments above.
DM2:
-not on medical therapy; was on Ozempic for weight loss.
-Hemoglobin A1c pending.
Obesity:
-improving with Ozempic
Suspected sleep apnea:
-Management as per primary team.
Subjective
Slept through the night after robitussing
04/15/23 R[facility]: HEMODYNAMIC DATA
Weight (kg): 101.6
AO (s/d/x mmHg):� 99/78/86
LV (s/x mmHg):� 100/27 (A wave to 42)
PCWP (a/v/x mmHg):� 35/33/27
PA (s/d/x mmHg):� /
RV (s/x mmHg):� 42/9
RA (a/v/x mmHg):� 15
SVC SvO2 (%): 46.3
PA (right) SvO2 (%): 55.1
SaO2 (%): 85.4
Hbg (g/dL): 14.4
CO (L/min):� 4.44
CI (L/min/m2):� 2.03
TPG (mmHg):� 4
PVR (Bernabe Units):� 0.90
SVR (dynes*seconds*cm^-5):� 1387
AVO2 Diff (Volume %):� 5.93
Physical Exam
Vital Signs/Labs
Vital Signs
Temp Pulse Resp BP Pulse Ox
97.2 F 89 16 105/76 98
04/24/23 07:12 04/24/23 07:12 04/24/23 07:12 04/24/23 04:56 04/24/23 07:12
04/23/23 04/24/23 04/25/23
06:59 06:59 06:59
Actual Weight 98.5 kg
04/21/23 03:58
04/24/23 05:00
PT 15.0 Sec (11.4-14.6) H 04/15/23 10:09
INR 1.17 04/15/23 10:09
Magnesium 2.3 mg/dl (1.6-2.3) 04/21/23 03:58
Triglycerides 113 mg/dl (10-149) 04/16/23 08:27
LDL Cholesterol, Calc 86 mg/dl 04/16/23 08:27
VLDL Cholesterol, Calc 22 mg/dl (0-30) 04/16/23 08:27
HDL Cholesterol 38 mg/dl 04/16/23 08:27
04/15/23
10:09
Ftq-U-Ouyvquwivsp Pept 1960
Physical Exam
Constitutional: No acute distress
Cardiovascular: Rhythm & rate is regular, Pedal edema is absent, JVD pressure is normal, Systolic murmur absent, Diastolic murmur absent and Rhythm/rate is irregular
Respiratory: Respiratory effort normal, Lungs clear to auscul., Wheeze Absent, Crackles Absent and Rhonchi Absent
Neuro/Psych: AO x 3
Data Reviewed
-
Date of Service: April 24, 2023
X-Ray/CT/US/MRI/NUC/PET: Discussed with Patient
Medical Tests (PFT, Pathology etc): Discussed with Nurse (giving arb back tonight)
[2023-04-24] MEDS: LOW STRENGTH ASPIRIN 81 MG PO (08:50)
[2023-04-24] MEDS: PROTONIX 20 MG PO (08:51)
[2023-04-24] MEDS: PEPCID 20 MG PO (08:51)
[2023-04-24] MEDS: FARXIGA 10 MG PO (08:51)
[2023-04-24] MEDS: DEMADEX 20 MG PO (08:51)
[2023-04-24] MEDS: TOPROL XL 25 MG PO (08:51)
[2023-04-24] MEDS: ALDACTONE 25 MG PO (08:52)
[2023-04-24] MEDS: KLOR-CON 40 MEQ PO (08:52)
[2023-04-24] MEDS: ROBITUSSIN AC 10 ML PO (08:55)
--- NOTE | 2023-04-24 09:34 | W.DS.TRANS ---
DC Summary - Offal Separator
-
Discharge Instructions:
Discharge Diagnosis/Procedures Heart failure, NSTEMI, Cardiac cath
Hypokalemia
Vyd-ygwloze-mprgagwbw diabetes mellitus
SIADH from recent pneumonia
Diet Low Cholesterol,2 Gram Sodium,Restrict fluids to
64 oz
Activity As tolerated
Driving Restrictions No driving for 24 hours
Specialty Instructions Weigh Daily
Instructions: *CBC Heart Failure Instructions
Stand-Alone Forms: DC Instructions- Cath/EP Lab
Changes to Home Medications: Yes
Discharge Medications:
DC Medications w/original date entered in [employer]
albuterol sulfate 90 mcg/actuation aerosol inhaler 2 puff inhalation R QIDPRN PRN shortness of breath or wheezing 04/15/23
ipratropium 0.5 mg-albuterol 3 mg (2.5 mg base)/3 mL nebulization soln 3 ml inhalation R Q4HPRN PRN SOB 04/15/23
semaglutide 0.25 mg or 0.5 mg (2 mg/3 mL) subcutaneous pen injector (Ozempic) 0.25 mg SC MO Diabetes 04/15/23
aspirin 81 mg chewable tablet (Children's Aspirin) 81 mg PO DAILY Blood clot prevention/tx #0 tabs 04/24/23
atorvastatin 20 mg tablet 20 mg PO QPM Supplement #30 tabs 04/24/23
codeine 10 mg-guaifenesin 100 mg/5 mL oral liquid (Guaifenesin AC) 5 ml PO ONCE Cough #118 mL 04/24/23
dapagliflozin propanediol 10 mg tablet (Farxiga) 10 mg PO DAILY Fluid retention/Swelling #30 tabs 04/24/23
metoprolol succinate 25 mg tablet,extended release 24 hr 25 mg PO DAILY Blood pressure #30 tabs 04/24/23
olmesartan 5 mg tablet 10 mg PO DAILY Blood pressure #60 tabs 04/24/23
potassium chloride 20 mEq oral packet (Klor-Con) 20 meq PO BID Electrolyte Repletion #30 ea 04/24/23
spironolactone 25 mg tablet 25 mg PO DAILY Blood pressure #30 tabs 04/24/23
torsemide 20 mg tablet 20 mg PO DAILY #30 tabs 04/24/23
Home Medication Changes
aspirin 81 mg chewable tablet (Children's Aspirin) 81 mg PO DAILY Blood clot prevention/tx #0 tabs 04/24/23
atorvastatin 20 mg tablet 20 mg PO QPM Supplement #30 tabs 04/24/23
codeine 10 mg-guaifenesin 100 mg/5 mL oral liquid (Guaifenesin AC) 5 ml PO ONCE Cough #118 mL 04/24/23
dapagliflozin propanediol 10 mg tablet (Farxiga) 10 mg PO DAILY Fluid retention/Swelling #30 tabs 04/24/23
metoprolol succinate 25 mg tablet,extended release 24 hr 25 mg PO DAILY Blood pressure #30 tabs 04/24/23
olmesartan 5 mg tablet 10 mg PO DAILY Blood pressure #60 tabs 04/24/23
potassium chloride 20 mEq oral packet (Klor-Con) 20 meq PO BID Electrolyte Repletion #30 ea 04/24/23
spironolactone 25 mg tablet 25 mg PO DAILY Blood pressure #30 tabs 04/24/23
torsemide 20 mg tablet 20 mg PO DAILY #30 tabs 04/24/23
Pending Results: No
Total time spent discharging patient (in min): 38
[2023-04-24 10:42] VITALS: BP 112/80
--- NOTE | 2023-04-24 11:25 | W.DCSUMMARY ---
Discharge Summary
Discharge Data
Date of Admission: 04/15/23
Date of Discharge: 04/24/23
Total time spent discharging patient (in min): 43
-
Pending Results: No
Hospital Course
53-year-old history of hypertension and sxr-plweuzo-jtilpjbtd diabetes recent most recently been on Ozempic but apparently not at time of admission being treated he has had presentation of persisting shortness of breath and had been diagnosed weeks
prior with influenza with persisting cough that was unrelenting and he had recurrent ED visits as result but was also noted to have episodes of orthopnea and PND he was admitted and subsequently found to have a significantly reduced EF of 25% via 2D
echocardiogram with global hypokinesis and moderate mitral regurgitation noted there was evidence of fluid overload patient was began on diuretic management with IV furosemide but subsequently developed persisting and intractable hypokalemia that
was resistant to repletion. Cough remain resistant to most antitussive modalities and included benzonatate guaifenesin plain Robitussin and finally had some relief with the addition of Robitussin with codeine. His glycohemoglobin was measured at
6.4 and it was acknowledged she should return to the usage of his Ozempic and have proper follow-up with his primary care provider for further diabetic management. He was seen by the nephrology service due to the resistant hypokalemia in the face
of continued need for diuresis. Patient finally had some results after the addition of spironolactone up to 25 mg daily he will be discharged on a potassium supplementation of 220 mg Klor-Con powder twice daily along with readdition of his
olmesartan he had been on a 10 mg he is to have a follow-up BMP in 1 week/he will have further follow-up with the cardiology service with thoughts for transition to Entresto should his BP allow and he will be continued on Toprol-XL 25 mg daily he
was started on Farxiga 10 mg. All new medications were called into his local pharmacy. Including prescription for Robitussin AC
His cardiac cath performed on 16 April noted a right dominant circulation with no significant coronary disease #2 severely elevated filling pressures end-diastolic pressures of 27 mmHg and capillary wedge of 27 with evidence of significant
diastolic dysfunction #3 significant myocardial dysfunction with a cardiac index of 2.03 #4 no evidence of any intramyocardial shunt onset around.
Discharge Plan
-
Patient Disposition: Home (Routine Discharge)
Discharge Diagnosis/Procedures: Heart failure with reduced EF of 25%, NSTEMI, Cardiac cath
Hypokalemia
Moderate mitral regurgitation
Jic-zigjkwl-nzamslvkq diabetes mellitus
SIADH from recent pneumonia
Diet: Low Cholesterol, 2 Gram Sodium and Restrict fluids to 64 oz
Activity: As tolerated
Driving Restrictions: No driving for 24 hours
Specialty Instructions: Weigh Daily- Call MD for wt gain/loss 3 lbs overnight/5 lbs in 1 week
Instructions: *CBC Heart Failure Instructions
Stand Alone Forms: DC Instructions- Cath/EP Lab
Referrals:
Nicolás Garcia I., [Family Provider] - (Have BMP checked in 1 week)
Haydee Lagunas CRNP [Specified Professional Personl] - 05/04/23 10:40 am
Prescriptions:
New
torsemide 20 mg Tablet
20 mg PO DAILY Qty: 30 0RF
spironolactone 25 mg Tablet
25 mg PO DAILY Qty: 30 0RF
dapagliflozin propanediol [Farxiga] 10 mg Tablet
10 mg PO DAILY Qty: 30 0RF
atorvastatin 20 mg Tablet
20 mg PO QPM Qty: 30 0RF
aspirin [Children's Aspirin] 81 mg Tablet,Chewable
81 mg PO DAILY Qty: 0 0RF
metoprolol succinate 25 mg Tablet Extended Release 24 Hr
25 mg PO DAILY Qty: 30 0RF
codeine-guaifenesin [Guaifenesin AC] 10-100 mg/5 mL liquid
5 ml PO ONCE Qty: 118 0RF
potassium chloride [Klor-Con] 20 mEq packet
20 meq PO BID Qty: 30 0RF
olmesartan 5 mg tablet
10 mg PO DAILY Qty: 60 0RF
Continued
ipratropium-albuterol 0.5 mg-3 mg(2.5 mg base)/3 mL Solution For Nebulization
3 ml INHALATION R Q4HPRN PRN (Reason: SOB)
Ozempic 0.25 mg or 0.5 mg (2 mg/3 mL) Pen Injector
0.25 mg SC MO
Rx Instructions:
for 4 weeks
albuterol sulfate 90 mcg/actuation HFA aerosol inhaler
2 puff inhalation R QIDPRN PRN (Reason: shortness of breath or wheezing)
Discontinued
dextromethorphan polistirex [Delsym 12 hour] 30 mg/5 mL Suspension,Extended Rel 12 Hr
5 ml PO QIDPRN PRN (Reason: COUGH)
Tylenol Cold and Flu Severe 1-49-784-200 mg/15 mL Liquid
15 ml PO BIDPRN PRN (Reason: COUGH AND MILD PAIN)
doxycycline hyclate 100 mg capsule
100 mg PO BID
Patient Comments:
PATIENT CAGE MAKER ON 04/10/23
cefpodoxime 200 mg tablet
200 mg PO Q12H
Patient Comments:
PATIENT CAGE MAKER ON 04/10/23
Discharge Orders:
Discharge Patient (As Directed); Ordered 04/24/23
Ordered By: Ankit Hood
Care Plan Goals
Care Plan Goals:
Problem: Readiness for enhanced knowledge related to diagnosis and treatment plan
Goal: Understand your diagnosis and treatment plan needs, including medications if applicable.
Instructions: Know your diagnosis, underlying causes and treatment plan options, including medications if applicable. Consult with your health care team to learn about your diagnosis and treatment plan, including medications if applicable.
--- NOTE | 2023-04-24 12:14 | W.HF.CON ---
Heart Failure
- LV Function
Left ventricular function study result: LV Ejection fraction </= 35%
Ejection Fraction Percentage: 25
- ARNI
Patient already on ARNI: No
Heart Failure ARNI Contraindication: Hypotension
- ACEI/ARB
Patient already on ACEI/ARB: Yes
- Beta Eugene
Patient already on Evidence Based Beta Eugene: Yes
- Mineralocorticord Receptor Antagonist
Patient already on MRA: Yes
- SGLT-2 Inhibitor
Patient already on SGLT-2 Inhibitor: Yes
- NYHA CHF Classification
NYHA CHF Classification Level: Class III - Symptoms w/ min exertion, interferes w/ nml daily activity
- ACC/AHA Stage
ACC/AHA Stage: Stage C: Symptomatic Heart Failure
--- NOTE | 2023-04-24 13:12 | PTCARENOTE ---
Pt seen by Christian and Erwin. Telemetry and IV device removed. Discharge instructions reviewed with pt and his regarding CHF guidelines, medications and their possible side effects, wound care, activity, blood tests, reporting cares
and concerns and follow up appt's. Excellent understanding verbalized. Pt escorted out via wheelchair and discharged to home.
--- NOTE | 2023-05-04 13:48 | HFEDUCATE ---
Pt had F/U appt on 04/29/23 at 2:00PM with Dr. Nicolás Garcia DO.
== END 2023-04-24 13:00 | disposition home or self-care (01) | DRG 286 ==
LOC: IVU 13:16
PROVIDERS: Internal Medicine Cardiovascular Disease; Nurse Practitioner Gerontology; Physician Assistant Medical; ADMITTING PHYSICIAN Internal Medicine; ATTENDING PHYSICIAN Internal Medicine; CONSULT PHYSICIAN Internal Medicine Cardiovascular Disease; CONSULT PHYSICIAN Student in an Organized Health Care Education/Training Program; EMERGENCY PHYSICIAN Emergency Medicine; FAMILY PHYSICIAN Internal Medicine
PROC: B2111ZZ Fluoroscopy of Multiple Coronary Arteries using Low Osmolar Contrast (ICD-10-PCS; 2023-04-15)
PROC: 4A023N8 Measurement of Cardiac Sampling and Pressure, Bilateral, Percutaneous Approach (ICD-10-PCS; 2023-04-15)
DX: I11.0 Hypertensive heart disease with heart failure (principal); I50.21 Acute systolic (congestive) heart failure; J18.9 Pneumonia, unspecified organism; I47.29 Other ventricular tachycardia; E22.2 Syndrome of inappropriate secretion of antidiuretic hormone; E87.6 Hypokalemia; I5A Non-ischemic myocardial injury (non-traumatic); I42.8 Other cardiomyopathies; E11.9 Type 2 diabetes mellitus without complications; I34.0 Nonrheumatic mitral (valve) insufficiency; Z79.84 Long term (current) use of oral hypoglycemic drugs; Z87.01 Personal history of pneumonia (recurrent)
CPT/HCPCS: 71045; 80048; 80053; 80061; 82570; 82962; 83036; 83735; 83880; 83935; 84133; 84145; 84300; 84443; 84484; 85025; 85027; 85610; 87811; 93005; 93306; 93460; 94640; 96374; 99291; C1769; C1894; Q9950; Q9967

== ENCOUNTER 2023-05-29 09:42 | Outpatient (RCR) | payer OTHER, SELFPAY ==
[2023-05-26 12:01] LABS: Glucose - Point of Care 91 mg/dl (70-99)
[2023-05-26 12:58] LABS: Glucose - Point of Care 87 mg/dl (70-99)
== END 2023-05-29 23:59 | disposition home or self-care (01) ==
LOC: CRHB 09:42
PROVIDERS: ATTENDING PHYSICIAN Internal Medicine Cardiovascular Disease
DX: I50.20 Unspecified systolic (congestive) heart failure (principal)
CPT/HCPCS: 82962; G0422; G0423

== ENCOUNTER 2023-06-29 09:58 | Outpatient (RCR) | payer OTHER, SELFPAY | END 2023-06-29 23:59 | disposition home or self-care (01) | LOC: CRHB 09:58 | PROVIDERS: ATTENDING PHYSICIAN Internal Medicine Cardiovascular Disease | DX: I50.20 Unspecified systolic (congestive) heart failure (principal) | CPT/HCPCS: G0422; G0423 ==

== ENCOUNTER → 2023-07-23 06:34 | Outpatient (REF) | payer OTHER, SELFPAY ==
[2023-07-23 07:40] LABS: HDL Cholesterol 52 mg/dl; LDL Cholesterol, Calculated 89 mg/dl; Total Cholesterol 172 mg/dl (50-199); Triglyceride 156 mg/dl (10-149); Very Low Density Lipoprotein 31 mg/dl (0-30)
== END ==
LOC: REG 06:34
PROVIDERS: ATTENDING PHYSICIAN Internal Medicine Cardiovascular Disease; FAMILY PHYSICIAN Internal Medicine
DX: I50.20 Unspecified systolic (congestive) heart failure (principal)
CPT/HCPCS: 36415; 80061

== ENCOUNTER 2023-07-31 11:33 | Outpatient (RCR) | payer OTHER, SELFPAY | END 2023-07-31 23:59 | disposition home or self-care (01) | LOC: CRHB 11:33 | PROVIDERS: ATTENDING PHYSICIAN Internal Medicine Cardiovascular Disease | DX: I50.20 Unspecified systolic (congestive) heart failure (principal) | CPT/HCPCS: G0422; G0423 ==

== ENCOUNTER 2023-08-12 16:27 | Outpatient (RCR) | payer OTHER, SELFPAY | END 2023-08-12 23:59 | disposition home or self-care (01) | LOC: CRHB 16:27 | PROVIDERS: ATTENDING PHYSICIAN Internal Medicine Cardiovascular Disease | DX: I50.22 Chronic systolic (congestive) heart failure (principal) | CPT/HCPCS: G0422; G0423 ==

== ENCOUNTER → 2023-08-18 09:58 | Outpatient (REF) | payer OTHER, SELFPAY | LOC: HWRCS 09:58 | PROVIDERS: ATTENDING PHYSICIAN Nurse Practitioner; FAMILY PHYSICIAN Internal Medicine | DX: I42.8 Other cardiomyopathies (principal) | CPT/HCPCS: 93306 ==

== ENCOUNTER 2023-08-28 10:11 | Emergency (ER) | payer OTHER, SELFPAY ==
[2023-08-28 10:15] VITALS: BP 110/85; BMI 34.3
[2023-08-28 10:34] LABS: % Basophils 0.5 % (0-2); % Eosinophils 2.2 % (0-6); % Immature Granulocytes 0.9 % (0-0.5); % Lymphocytes 28.6 % (20.5-51.1); % Monocytes 9.5 % (1.7-9.3); % Neutrophils 58.3 % (42.2-75.2); Absolute Eosinophils 0.2 10^3/uL (0-0.7); Absolute Immature Granulocytes 0.1 10^3/uL (0-0.05); Absolute Lymphocytes 2.3 10^3/uL (1.2-3.4); Absolute Monocytes 0.8 10^3/uL (0.1-0.6); Absolute Neutrophils 4.6 10^3/uL (1.4-6.5); Hematocrit 46.8 % (39.0-52.0); Hemoglobin 16.8 g/dL (13.0-18.0); Mean Corp Hgb Conc. 35.9 g/dL (33.0-37.0); Mean Corpuscular Hgb 31.3 pg (27.0-31.0); Mean Corpuscular Volume 87.2 fL (80.0-94.0); Mean Platelet Volume 9.9 fL (7.4-10.4); Nucleated Red Blood Cells % 0 % (-); Platelet Count 219 10^3/uL (130-400); Red Blood Cell Count 5.37 10^6/uL (4.70-6.10); White Blood Cell Count 7.9 10^3/uL (4.8-10.8)
--- NOTE | 2023-08-28 10:37 | ED.GENMED ---
History of Present Illness
<Hedy Lewis PA-C - Last Filed: 08/28/23 18:29>
General
Chief Complaint: Fainting/Passed Out
Source: patient
Exam Limitations: none
Time Seen by Provider: 08/28/23 10:25
Nursing documentation reviewed up to this point in time: agreed with
History of Present Illness
History of Present Illness:
Patient is a 53 year old male with history diabetes, congestive heart failure, and hypertension presenting to the emergency department via EMS for evaluation following near syncopal event while at the [facility] about an hour ago. Patient states that he
was squatting in the gym with 5lb weights when suddenly began feeling very lightheaded. He was able to sit down and began having some blurry vision and dizziness. Employees at the [facility] called EMS for transportation to the emergency department.
Patient states symptoms at this point are mostly improved. Patient did not ever actually faint or lose consciousness. he denies any associated chest pain, shortness of breath, nausea or vomiting. Patient has not had any recent changes in his
weight or worsening shortness of breath.
Patient follows with Dr. Fenton and his primary drafter electronic.
Past History
<Hedy Lewis PA-C - Last Filed: 08/28/23 18:29>
Past History
ED Past Medical History: GERD
ED Past Surgical History: Orthopedic
Social History
Tobacco: Non-smoker
Alcohol: Occasional
Drug: None
Personal:
Living: with family
Review of Systems
<Hedy Lewis PA-C - Last Filed: 08/28/23 18:29>
Review of Systems
Allergies reviewed?: Yes
All Other Systems: ROS reviewed and negative except as documented in HPI and ROS
Phy Exam
<Hedy Lewis PA-C - Last Filed: 08/28/23 18:29>
Physical Exam
Physical Exam:
Vitals: Patient's vital signs are stable. Afebrile
General: Patient is well appearing, no acute distress. Nontoxic-appearing
Skin: Warm and dry, no rashes or lesions
Head: Normocephalic, atraumatic
Eyes: Sclera nonicteric. EOMs intact. No nystagmus.
Throat: Protecting airway. Moist mucous membranes
Neck: Normal ROM, no cervical spine tenderness, no meningismus
Cardiac: Regular rate and rhythm, no murmurs.
Pulm: Normal respiratory effort, no wheezes, rales, rhonchi heard on exam.
Abdomen: Abdomen soft. No abdominal tenderness.
Extremities: No evidence of cyanosis or edema. Great distal pulses
Neuro: AAOx3. CN II-XII intact. No focal neurologic deficits.
Psychiatric: Normal affect.
Course
<Hedy Lewis PA-C - Last Filed: 08/28/23 18:29>
Orders/Labs/Results
Orders:
Orders
08/28/23 10:13
EKG [Electrocardiogram (*1)] Urgent
Reason for Study: Vertigo / Dizzy
08/28/23 10:14
EKG- Treatment ONCE
08/28/23 10:20
Complete Blood Count/With Diff Urgent
Comprehensive Metabolic Panel Urgent
NT-proBNP Urgent
Troponin I Urgent
08/28/23 10:51
Orthostatic VS- Treatment ONCE
Abnormal Lab Results
08/28/23
10:20
MCH 31.3 H pg
(27.0-31.0)
Abs Immat Gran (auto) 0.1 H 10^3/uL
(0-0.05)
Absolute Monos (auto) 0.8 H 10^3/uL
(0.1-0.6)
Immature Gran % 0.9 H %
(0-0.5)
Monocytes % 9.5 H %
(1.7-9.3)
BUN 22 H mg/dl
(9-20)
Glucose 139 H mg/dl
(70-99)
Total Protein 8.3 H g/dl
(6.3-8.2)
Albumin 5.2 H g/dl
(3.5-5.0)
08/28/23 10:20
08/28/23 10:20
Vital Signs
Initial and Last Documented VS:
Initial Vital Signs
Temp Pulse Resp BP Pulse Ox
97.7 F 97 17 110/85 98
08/28/23 10:15 08/28/23 10:15 08/28/23 10:15 08/28/23 10:15 08/28/23 10:15
Last Documented Vital Signs
Temp Pulse Resp BP Pulse Ox
97.7 F 85 14 103/73 93
08/28/23 10:15 08/28/23 11:45 08/28/23 11:45 08/28/23 11:44 08/28/23 11:45
<Tommy Vu, DO - Last Filed: 08/28/23 11:33>
Orders/Labs/Results
Orders:
Orders
08/28/23 10:13
EKG [Electrocardiogram (*1)] Urgent
Reason for Study: Vertigo / Dizzy
08/28/23 10:14
EKG- Treatment ONCE
08/28/23 10:20
Complete Blood Count/With Diff Urgent
Comprehensive Metabolic Panel Urgent
NT-proBNP Urgent
Troponin I Urgent
08/28/23 10:51
Orthostatic VS- Treatment ONCE
Abnormal Lab Results
08/28/23
10:20
MCH 31.3 H pg
(27.0-31.0)
Abs Immat Gran (auto) 0.1 H 10^3/uL
(0-0.05)
Absolute Monos (auto) 0.8 H 10^3/uL
(0.1-0.6)
Immature Gran % 0.9 H %
(0-0.5)
Monocytes % 9.5 H %
(1.7-9.3)
BUN 22 H mg/dl
(9-20)
Glucose 139 H mg/dl
(70-99)
Total Protein 8.3 H g/dl
(6.3-8.2)
Albumin 5.2 H g/dl
(3.5-5.0)
08/28/23 10:20
08/28/23 10:20
Vital Signs
Initial and Last Documented VS:
Initial Vital Signs
Temp Pulse Resp BP Pulse Ox
97.7 F 97 17 110/85 98
08/28/23 10:15 08/28/23 10:15 08/28/23 10:15 08/28/23 10:15 08/28/23 10:15
Last Documented Vital Signs
Temp Pulse Resp BP Pulse Ox
97.7 F 85 14 103/73 93
08/28/23 10:15 08/28/23 11:45 08/28/23 11:45 08/28/23 11:44 08/28/23 11:45
<Hedy Lewis PA-C - Last Filed: 08/28/23 18:29>
MDM/Problems Addressed
Differential Diagnosis Includes:
Not limited to: Vasovagal syncope, dehydration, viral illness, orthostatic hypotension
MDM/Problems Addressed:
53-year-old male with history of CHF presenting following near syncopal episode at gym. Patient was squatting in the gym when he had a near syncopal event. No preceding chest pain, shortness of breath. Patient had doubled up on his torsemide over
the past 2 days under direction of his drafter electronic. Patient asymptomatic at this time and feeling better. EKG without any ischemic changes. Labs obtained during triage noted. No clinically significant abnormalities. Patient is very
well-appearing, sitting in bed comfortably. Heart regular rate and rhythm. Lungs clear bilaterally. No peripheral edema. Suspect likely vasovagal near syncope versus mild dehydration from increased diuretic. Given CHF and recent fluid
overload�will avoid IV fluids now.
Patient has been monitored in the emergency department and remains in no apparent distress. Cardiac workup negative. EKG nonischemic. Stable for discharge home with primary care follow-up. Advised to stay well-hydrated. Patient comfortable with
plan and would like to be discharged.
Chronic conditions affecting care:
N/A
Acute Exacerbation and/or Progression of Chronic Illness:
N/A
<Hedy Lewis PA-C - Last Filed: 08/28/23 18:29>
*Pulse Oximetry
Patient hypoxic: no
*EKG
Interpreted by ED Provider?: Yes
EKG Intrepretation Date: 08/28/23
Interpretation: normal
Comparison EKG: no comparison EKG present
Heart Rate: 94
Rate: normal
Rhythm: sinus
QRS Pattern: right bundle branch block
Ischemia: no ischemia
*Audio Recording Engineer Interpretation
Rate: normal
Interpretation: normal
Heart Rate: 86
Rhythm: sinus
*Critical Care Note
Total Time (30-74mins, 75-104mins- exclusive of procedures): Not Applicable
ED Attending Note
<Hedy Lewis PA-C - Last Filed: 08/28/23 18:29>
-
Portions of this chart may have been created with voice recognition software.� Occasional wrong word or��sound alike� substitutions may have occurred due to the inherent limitations of voice recognition software.
<Tommy Vu DO - Last Filed: 08/28/23 11:33>
ED Attending Note
Patient seen and examined by attending physician: Yes
I performed the substantive portion of visit, reviewed & personally made and approve the management plan that is documented in note by myself or CHRIS.: Yes
ED Attending Note:
I have seen and evaluated the patient with a [id number] encounter. I have spoken to the advance practicer provider and involved in the medical history, the physical exam, medical decision making.
Evaluation and management service: agree unless noted differently below.
Results interpretation: agree unless noted differently below.
Focused HPI: 53-year-old male presenting for evaluation of near syncope. Patient was at the gym and he was squatting. He felt lightheaded. Patient does have a history of CHF and was recently on double Lasix
Physical exam: Sitting in bed comfortably. Heart regular in rhythm. No leg edema
Medical Decision Making: EKG and cardiac workup negative. Discussed likely near syncope secondary to vasovagal. Patient states he feels comfortable going home
Discharge Plan
Departure
Patient Disposition: Home (Routine Discharge)
Date of Disposition: 08/28/23
Time of Disposition: 11:33
Patient with high blood pressure during this ER visit?: No
Condition: Good
Covid-19: Not Applicable
Discharge Problem:
Vasovagal near syncope
Instructions: Syncope (Fainting) (DC), Vasovagal Response (DC)
Prescriptions:
No Action
ipratropium-albuterol 0.5 mg-3 mg(2.5 mg base)/3 mL Solution For Nebulization
3 ml INHALATION R Q4HPRN PRN (Reason: SOB)
Ozempic 0.25 mg or 0.5 mg (2 mg/3 mL) Pen Injector
0.25 mg SC MO
Rx Instructions:
for 4 weeks
albuterol sulfate 90 mcg/actuation HFA aerosol inhaler
2 puff inhalation R QIDPRN PRN (Reason: shortness of breath or wheezing)
torsemide 20 mg Tablet
20 mg PO DAILY Qty: 30 0RF
spironolactone 25 mg Tablet
25 mg PO DAILY Qty: 30 0RF
dapagliflozin propanediol [Farxiga] 10 mg Tablet
10 mg PO DAILY Qty: 30 0RF
atorvastatin 20 mg Tablet
20 mg PO QPM Qty: 30 0RF
aspirin [Children's Aspirin] 81 mg Tablet,Chewable
81 mg PO DAILY Qty: 0 0RF
metoprolol succinate 25 mg Tablet Extended Release 24 Hr
25 mg PO DAILY Qty: 30 0RF
codeine-guaifenesin [Guaifenesin AC] 10-100 mg/5 mL liquid
5 ml PO ONCE Qty: 118 0RF
potassium chloride [Klor-Con] 20 mEq packet
20 meq PO BID Qty: 30 0RF
olmesartan 5 mg tablet
10 mg PO DAILY Qty: 60 0RF
Referrals:
Nicolás Garcia I., [Family Provider] -
Activity Restrictions/Additional Instructions:
RETURN TO THE EMERGENCY DEPARTMENT WITH ANY CHEST PAIN, SHORTNESS OF BREATH, PERSISTENT DIZZINESS, SEVERE ABDOMINAL PAIN, WORSENING IN CURRENT SYMPTOMS, OR ANY OTHER CONCERNS
-You should continue to take your medications as prescribed. Stay well-hydrated. Take it easy over the next few days.
-Follow-up with your primary care/drafter electronic for further evaluation/management
Interventions
Interventions:
*Risk Screen - Suicide Last Done: 08/28/23 10:15
*General Assessment Last Done: 08/28/23 10:15
*Neglect/Abuse Screening Last Done: 08/28/23 10:15
ED- Fall Risk Assessment Last Done: 08/28/23 10:15
*ED COVID-19 Vaccine History Last Done: 08/28/23 10:15
*Nursing Disposition Last Done: 08/28/23 11:50
ED- Cardiac Assessment Last Done: 08/28/23 10:15
ED- Neurological Assessment Last Done: 08/28/23 10:15
Discharge Date and Time
Discharge Date/Time: 08/28/23 11:51
Print Language: PALAUAN
[2023-08-28 10:47] LABS: ALT (SGPT) 30 U/L (0-50); AST (SGOT) 23 U/L (17-59); Albumin 5.2 g/dl (3.5-5.0); Alkaline Phosphatase 71 U/L (38-126); Blood Urea Nitrogen 22 mg/dl (9-20); Calcium 9.8 mg/dl (8.4-10.2); Carbon Dioxide 25 mmol/L (22-30); Chloride 98 mmol/L (98-107); Estimated Creatinine Clearance 90 ml/min; Glucose 139 mg/dl (70-99); Potassium 4.5 mmol/L (3.5-5.1); Sodium 138 mmol/L (135-145); Total Bilirubin 0.4 mg/dl (0.2-1.3); Total Protein 8.3 g/dl (6.3-8.2); eGFR > 60.00
[2023-08-28 10:58] LABS: NT-proBNP 307 pg/ml; Troponin I < 0.012 ng/ml
[2023-08-28 11:00] VITALS: BP 107/79
[2023-08-28 11:43] VITALS: BP 96/74
[2023-08-28 11:44] VITALS: BP 103/73
[2023-08-28 11:48] VITALS: BP 103/73; BP 110/84; BP 96/74; PULSE 71; PULSE 76; PULSE 82
== END 2023-08-28 11:51 | disposition home or self-care (01) ==
LOC: EMR 10:11
PROVIDERS: EMERGENCY PHYSICIAN Student in an Organized Health Care Education/Training Program; FAMILY PHYSICIAN Internal Medicine
DX: R55 Syncope and collapse (principal); Y93.B3 Activity, free weights; Y92.39 Other specified sports and athletic area as the place of occurrence of the external cause; I45.10 Unspecified right bundle-branch block; I11.0 Hypertensive heart disease with heart failure; I50.9 Heart failure, unspecified; K21.9 Gastro-esophageal reflux disease without esophagitis; Z87.01 Personal history of pneumonia (recurrent); Z87.891 Personal history of nicotine dependence; Z79.82 Long term (current) use of aspirin; Z88.8 Allergy status to other drugs, medicaments and biological substances; Z91.048 Other nonmedicinal substance allergy status
CPT/HCPCS: 99283; 80053; 83880; 84484; 85025; 93005

== ENCOUNTER → 2023-10-15 08:34 | Outpatient (REF) | payer OTHER, SELFPAY | LOC: MRI 08:34 | PROVIDERS: ATTENDING PHYSICIAN Internal Medicine Cardiovascular Disease; FAMILY PHYSICIAN Internal Medicine | DX: I42.8 Other cardiomyopathies (principal) | CPT/HCPCS: 75561; 75565; A9585 ==